=== PATIENT | female | born 1995 | race Caucasian/White ===

== ENCOUNTER 2020-08-01 22:25 | Outpatient (CLI) | payer MEDICAID, SELFPAY ==
[2020-08-01 22:25] VITALS: BMI 37.5
[2020-08-01 22:45] VITALS: BP 122/71; PULSE 96; RESP 16; TEMP 36.4
[2020-08-01 23:31] VITALS: BP 122/71; PULSE 96; RESP 16; TEMP 36.4
== END 2020-08-01 23:22 | disposition home or self-care (01) ==
LOC: OPOB 22:26 → OBGYN 22:27
PROVIDERS: PCP Family Medicine; Visit Provider Family Medicine
DX: O26.899 Other specified pregnancy related conditions, unspecified trimester (principal); Z3A.00 Weeks of gestation of pregnancy not specified; N93.9 Abnormal uterine and vaginal bleeding, unspecified
CPT/HCPCS: 99211

== ENCOUNTER 2020-08-04 07:01 | Outpatient (CLI) | payer MEDICAID, SELFPAY ==
--- NOTE | 2020-08-04 07:04 | USCV_ITS ---
Carolin Bush Age: 25 Gender: F : 1995 Exam Date: 08/04/2020 07:24 Ordering Phys: Sarath Yu MD Technologist: Kenzie Shields Exam Location: [facility] – [place] Indication: Murmur BP: 138 / 80 HR: 81 Rhythm: Sinus Technical Quality: Adequate MEASUREMENTS (Male / Female) Normal Values 2D ECHO LV Diastolic Diameter PLAX 4.5 cm 4.2 - 5.9 / 3.9 - 5.3 cm LV Systolic Diameter PLAX 3.1 cm LV Chamber Size 4.9 cm IVS Diastolic Thickness 1.1 cm 0.6 - 1.0 / 0.6 - 0.9 cm IVS Systolic Thickness 1.6 cm LVPW Diastolic Thickness 1.2 cm 0.6 - 1.0 / 0.6 - 0.9 cm LVPW Systolic Thickness 1.8 cm RV Chamber Size 3.4 cm LVOT Diameter 2.0 cm LV Ejection Fraction 2D Teich 58.3 % LV Ejection Fraction MOD 2C 66.0 % LV Ejection Fraction 2C AL 67.2 % LA Diameter 3.5 cm LA Width 3.1 cm LA Height 5.4 cm RA Width 2.7 cm RA Height 5.6 cm Aorta at Sinotubular Diameter 3.1 cm M-MODE LV Diastolic Diameter MM 4.6 cm 4.2 - 5.9 / 3.9 - 5.3 cm LV Systolic Diameter MM 3.0 cm LV Ejection Fraction MM Teich 65.0 % IVS Diastolic Thickness MM 1.0 cm 0.6 - 1.0 / 0.6 - 0.9 cm IVS Systolic Thickness MM 1.5 cm LVPW Diastolic Thickness MM 1.5 cm 0.6 - 1.0 / 0.6 - 0.9 cm LVPW Systolic Thickness MM 1.8 cm RV Diastolic Diameter MM 2.2 cm Aortic Annulus Diameter 2.5 cm LA Ao Ratio MM 1.6 MV E Point Septal Separation 0.6 cm DOPPLER AV Peak Velocity 160.0 cm/s LVOT Peak Velocity 145.0 cm/s AV Area Cont Eq vti 3.0 cm squared AV Area Cont Eq pk 2.9 cm squared MV Area PHT 4.1 cm squared Mitral E to A Ratio 1.6 MV E' Velocity 64.5 cm/s Mitral E to MV E' Ratio 7.0 Mitral E to LV E' Lateral Ratio 5.6 Mitral E to LV E' Septal Ratio 9.5 TR Peak Velocity 210.6 cm/s TR Peak Gradient 17.7 mmHg TV Peak E Velocity 76.0 cm/s Right Atrial Pressure 3.0 mmHg Pulmonary Artery Systolic Pressu 20.7 mmHg PV Peak Velocity 108.0 cm/s RV Acceleration Time 0.1 s RV Ejection Time 0.3 s RV AcT/ET 0.4 FINDINGS Left Ventricle Normal left ventricular size, systolic function and wall thickness, with no regional wall motion abnormalities. LVEF 60 to 65%. Normal left ventricular wall thickness. Normal diastolic filling pattern. Right Ventricle The right ventricle is normal in size and function. Right Atrium The right atrium is normal in size. Left Atrium The left atrium is normal in size. Mitral Valve Structurally normal mitral valve without significant stenosis or prolapse. There is trace mitral regurgitation. Aortic Valve Structurally normal aortic valve without significant sclerosis or stenosis. There is no aortic regurgitation. Tricuspid Valve Structurally normal tricuspid valve without significant stenosis. There is trace tricuspid regurgitation. RVSP is 20 to 25 mmHg. Pulmonic Valve Structurally normal pulmonic valve without significant stenosis. There is no pulmonic regurgitation. Pericardium Normal pericardium without effusion. Aorta Normal ascending aorta dimension. CONCLUSIONS LV systolic function is normal with EF of 60 to 65%. Normal diastolic function. Trace mitral regurgitation and tricuspid regurgitation is noted. No comparison studies are available. Kris Mcguire MD (Electronically Signed) Final Date: 17 August 2020 09:52 S
== END 2020-08-04 07:02 | disposition home or self-care (01) ==
LOC: US 07:03
PROVIDERS: PCP Family Medicine; Visit Provider Family Medicine
DX: I08.1 Rheumatic disorders of both mitral and tricuspid valves (principal); R01.1 Cardiac murmur, unspecified
CPT/HCPCS: 93306

== ENCOUNTER 2020-09-02 12:10 | Outpatient (CLI) | payer MEDICAID, SELFPAY ==
[2020-09-02] VITALS (68 sets, daily range): BP systolic 138–228; BP diastolic 56–106; PULSE 8–141; RESP 16; TEMP 36.6; O2SAT 55–100; BMI 37.5
[2020-09-02 13:21] LABS: Add Urine Microscopic? NO
[2020-09-02 13:51] LABS: Basophils % 0.1 %; Eosinophils # 0.1 10^3/uL (0.0-0.8); Eosinophils % 1.2 %; Hematocrit 30.7 % (37.0-47.0); Hemoglobin 9.4 g/dL (11.5-15.3); Lymphocytes # 1.6 10^3/uL (0.8-4.8); Lymphocytes % 20.9 %; Mean Corpuscular HGB Conc 30.6 g/dL (30.0-36.0); Mean Corpuscular Hemoglobin 25.3 pg (28.0-34.0); Mean Corpuscular Volume 82.5 fL (81-99); Mean Platelet Volume 9.6 fL (7.4-10.4); Monocytes # 0.6 10^3/uL (0.2-0.9); Monocytes % 7.7 %; Neutrophils # 5.32 10^3/uL (1.8-7.7); Neutrophils % 69.4 %; Nucleated Red Blood Cells % 0 %; Platelet Count 186 10^3/cmm (130-400); Red Blood Count 3.72 10^6/uL (4.1-5.3); Red Cell Distribution Width 14.9 % (12.1-15.1); White Blood Count 7.7 10^3/uL (4.0-10.0)
[2020-09-02] MEDS: labetalol 5 mg/mL SDV 20mL IVP (13:56)
[2020-09-02] MEDS: betamethasone susp 6 mg/mL 5 mL 12 MG IM (13:56)
[2020-09-02 14:12] LABS: Bilirubin Urine Neg (Negative); Blood Urine Neg (Negative); Glucose Urine UA Norm (Normal); Ketones Urine Negative (Negative); Leukocyte Esterase Urine Negative (Negative); Nitrate Urine Negative (Negative); Protein Urine Neg (Negative); Specific Gravity, Urine 1.005 (1.005-1.030); Urine Appearance Clear (CLEAR); Urine Color Straw (Yellow); Urobilinogen Urine Norm (Negative)
[2020-09-02 14:41] LABS: Alanine Aminotransferase 8 U/L (0-33); Albumin Level 3.8 g/dL (3.5-5.2); Alkaline Phosphatase 123 IU/L (35-105); Anion Gap 12.7 (5-19); Aspartate Amino Transferase 12 U/L (0-32); Blood Urea Nitrogen 6 mg/dL (6-20); Calcium 9.7 mg/dL (8.5-10.5); Carbon Dioxide 22 mmol/L (22-29); Chloride 102 mmol/L (98-107); Glomerular Filtration Rate 196.1 mL/min (90-130); Glucose 98 mg/dL (65-115); Osmolality Calculated 274 mOsm/kg (285-295); Potassium 3.7 mmol/L (3.5-5.1); Sodium 133 mmol/L (136-145); Total Bilirubin 0.2 mg/dL (0.15-1.2); Total Protein 6.8 g/dL (6.6-8.7); Uric Acid 3.6 mg/dL (2.4-5.7)
[2020-09-02 16:10] LABS: Thyroid Stimulating Hormone 0.75 uIU/mL (0.27-4.20)
[2020-09-02 17:03] LABS: Urine Creatinine 28 mg/dL (28-217); Urine Protein Random 4 mg/dL
[2020-09-02 17:05] LABS: UPRO/UCREAT Ratio 0.14 mg/mg CR
== END 2020-09-02 17:00 | disposition home or self-care (01) ==
LOC: OPOB 12:14 → OBGYN 12:15
PROVIDERS: PCP Family Medicine; Visit Provider Family Medicine
DX: O13.9 Gestational [pregnancy-induced] hypertension without significant proteinuria, unspecified trimester (principal); Z3A.00 Weeks of gestation of pregnancy not specified
CPT/HCPCS: 59025; 80053; 81003; 82570; 84156; 84443; 84550; 85025; 96372; 96375; 99211; J0702; J3490

== ENCOUNTER 2020-09-03 13:49 | Outpatient (CLI) | payer MEDICAID, SELFPAY ==
[2020-09-03 13:56] VITALS: BMI 37.5
[2020-09-03] MEDS: betamethasone susp 6 mg/mL 5 mL 12 MG IM (14:04)
== END 2020-09-03 14:08 | disposition home or self-care (01) ==
LOC: OPOB 13:52
PROVIDERS: PCP Family Medicine; Visit Provider Family Medicine
DX: O13.9 Gestational [pregnancy-induced] hypertension without significant proteinuria, unspecified trimester (principal); Z3A.00 Weeks of gestation of pregnancy not specified
CPT/HCPCS: 96372; J0702

== ENCOUNTER 2020-09-07 10:30 | Outpatient (CLI) | payer MEDICAID, SELFPAY ==
[2020-09-07 10:38] VITALS: RESP 18; TEMP 36.7
[2020-09-07 10:45] VITALS: BMI 37.3
[2020-09-07 10:58] VITALS: BP 161/90; PULSE 118
[2020-09-07 11:19] VITALS: BP 161/90; PULSE 118; RESP 18; TEMP 36.7
[2020-09-08 17:19] LABS: Coronavirus Lab Test PTC Negative
== END 2020-09-07 11:15 | disposition home or self-care (01) ==
LOC: OPOB 10:36
PROVIDERS: PCP Family Medicine; Visit Provider Family Medicine
DX: O16.9 Unspecified maternal hypertension, unspecified trimester (principal)
CPT/HCPCS: 59025; 87635; 99211

== ENCOUNTER 2020-09-10 09:58 | Outpatient (CLI) | payer MEDICAID, SELFPAY ==
[2020-09-10] VITALS (23 sets, daily range): BP systolic 0–196; BP diastolic 0–92; PULSE 77–153; RESP 16; TEMP 37.1; BMI 39.1
--- NOTE | 2020-09-10 10:36 | PC.NURSE ---
power outage occured at 1017, and back up power did not reboot monitor in room 209 where pt was for NST. pt walked to room LDR1 and used bathroom and then hooked back to monitors
[2020-09-10] MEDS: labetalol 5 mg/mL SDV 20mL 20 MG IVP (13:17)
[2020-09-10 13:49] LABS: Add Urine Microscopic? NO
[2020-09-10 14:01] LABS: Basophils % 0.2 %; Eosinophils # 0.1 10^3/uL (0.0-0.8); Hematocrit 30.7 % (37.0-47.0); Hemoglobin 9.4 g/dL (11.5-15.3); Lymphocytes % 22.7 %; Mean Corpuscular HGB Conc 30.6 g/dL (30.0-36.0); Mean Corpuscular Volume 81.6 fL (81-99); Mean Platelet Volume 9.8 fL (7.4-10.4); Monocytes # 0.8 10^3/uL (0.2-0.9); Monocytes % 9.3 %; Neutrophils # 5.92 10^3/uL (1.8-7.7); Neutrophils % 65.8 %; Nucleated Red Blood Cells % 0 %; Platelet Count 213 10^3/cmm (130-400); Red Blood Count 3.76 10^6/uL (4.1-5.3); Red Cell Distribution Width 15.1 % (12.1-15.1)
[2020-09-10 14:05] LABS: Bilirubin Urine Neg (Negative); Blood Urine Neg (Negative); Glucose Urine UA Norm (Normal); Ketones Urine Negative (Negative); Leukocyte Esterase Urine Negative (Negative); Nitrate Urine Negative (Negative); Protein Urine Neg (Negative); Sulfosalicylic Acid Urine Negative (Negative); Urine Appearance Clear (CLEAR); Urine Color Yellow (Yellow); Urobilinogen Urine Norm (Negative); pH Urine 8 (5-7)
[2020-09-10 14:15] LABS: UPRO/UCREAT Ratio 0.16 mg/mg CR; Urine Creatinine 31 mg/dL (28-217); Urine Protein Random 5 mg/dL
--- NOTE | 2020-09-10 14:17 | P.TNLD_ITS ---
OB L&D Triage Visit Information: Date of evaluation: 09/10/20 Comments/Additional reason(s) for visit: The patient is a 25-year-old female at 36 weeks and 5 days who presented to the OB department today for a scheduled NST due to gestational hypertension. She had a recent 24-hour protein screen which found her protein to be 180. She had a panel done last week which was negative. She has intermittent systolic blood pressures that are 180s but then will also drop into a normal range intermittently. She is currently on labetalol 200 mg twice daily. Evaluation: Laboratory results: Laboratory Tests 09/10/20 09/10/20 09/10/20 13:15 13:15 13:20 WBC 9.0 RBC 3.76 L Hgb 9.4 L Hct 30.7 L MCV 81.6 MCH 25.0 L MCHC 30.6 RDW 15.1 Plt Count 213 MPV 9.8 Neut % (Auto) 65.8 Lymph % (Auto) 22.7 [place] % (Auto) 9.3 Eos % (Auto) 1.0 Baso % (Auto) 0.2 Neut # (Auto) 5.92 Lymph # (Auto) 2.0 [place] # (Auto) 0.8 Eos # (Auto) 0.1 Baso # (Auto) 0.0 Nucleated RBC % (a uto) 0 Nucleated RBCs # 0.0 Urine Color Yellow Urine Appearance Clear Urine pH 8 H Ur Specific Gravit y 1.010 Urine Protein Neg Urine Glucose (UA) Norm Urine Ketones Negative Urine Blood Neg Urine Nitrate Negative Urine Bilirubin Neg Prot Sulfosalicyli c Acd Negative Urine Urobilinogen Norm Ur Leukocyte Ave ase Negative U Random Total Pro tein 5 Urine Creatinine 31 Protein/Creatinin Ratio 0.16 Vital signs: Vital Signs - 24 hr 09/10/20 10:08 09/10/20 10:48 09/10/20 10:56 Pulse Rate 153 H 104 H 124 H Blood Pressure 138/77 184/87 196/84 09/10/20 11:12 09/10/20 11:27 09/10/20 12:03 Pulse Rate 114 H 126 H 104 H Blood Pressure 183/83 188/81 175/84 09/10/20 12:33 09/10/20 13:14 09/10/20 13:28 Pulse Rate 116 H 92 Blood Pressure 183/84 181/92 0/0 09/10/20 13:30 09/10/20 13:39 09/10/20 13:49 Pulse Rate 101 H 97 92 Blood Pressure 174/84 155/67 145/72 09/10/20 13:58 09/10/20 14:00 09/10/20 14:09 Pulse Rate 85 Blood Pressure 0/0 136/73 0/0 09/10/20 14:10 Pulse Rate 87 Blood Pressure 141/80 Final Diagnosis Final Diagnosis (1) Gestational hypertension: Status: Acute Code(s): O13.9 - Gestational [-induced] hypertension without significant proteinuria, unspecified trimester Coding Level of Care Code Acute Real Estate Consultant for Chg Fwd Diagnoses Gestational hypertension O13.9
[2020-09-10 14:38] LABS: Alanine Aminotransferase 19 U/L (0-33); Albumin Level 3.9 g/dL (3.5-5.2); Alkaline Phosphatase 128 IU/L (35-105); Aspartate Amino Transferase 23 U/L (0-32); Blood Urea Nitrogen 6 mg/dL (6-20); Carbon Dioxide 21 mmol/L (22-29); Chloride 101 mmol/L (98-107); Globulin 2.9 g/dL (1.3-4.6); Glomerular Filtration Rate 273.3 mL/min (90-130); Glucose 74 mg/dL (65-115); Osmolality Calculated 272 mOsm/kg (285-295); Sodium 133 mmol/L (136-145); Total Bilirubin 0.2 mg/dL (0.15-1.2); Total Protein 6.8 g/dL (6.6-8.7); Uric Acid 3.7 mg/dL (2.4-5.7)
== END 2020-09-10 15:20 | disposition home or self-care (01) ==
LOC: OPOB 10:04 → OBGYN 10:04
PROVIDERS: PCP Family Medicine; Visit Provider Family Medicine
DX: O13.9 Gestational [pregnancy-induced] hypertension without significant proteinuria, unspecified trimester (principal)
CPT/HCPCS: 12345; 36415; 59025; 80053; 81003; 82570; 84156; 84550; 85025; 96375; 99211; J3490

== ENCOUNTER 2020-09-14 06:18 | Inpatient (IN) | payer MEDICAID, SELFPAY ==
[2020-09-13] VITALS (23 sets, daily range): BP systolic 0–174; BP diastolic 0–88; PULSE 79–118; TEMP 37.2; BMI 38.6
[2020-09-13] MEDS: miSOPROStol 100 mcg tablet 25 MCG VAGINAL (20:53)
[2020-09-13] MEDS: labetalol 5 mg/mL SDV 20mL 20 MG IVP (21:49)
[2020-09-13 21:55] LABS: Basophils % 0.4 %; Eosinophils # 0.1 10^3/uL (0.0-0.8); Eosinophils % 1.2 %; Hematocrit 27.8 % (37.0-47.0); Hemoglobin 8.5 g/dL (11.5-15.3); Lymphocytes # 2.1 10^3/uL (0.8-4.8); Lymphocytes % 26.3 %; Mean Corpuscular HGB Conc 30.6 g/dL (30.0-36.0); Mean Corpuscular Volume 81.8 fL (81-99); Mean Platelet Volume 10.3 fL (7.4-10.4); Monocytes # 0.7 10^3/uL (0.2-0.9); Monocytes % 8.6 %; Neutrophils # 5.08 10^3/uL (1.8-7.7); Nucleated Red Blood Cells % 0 %; Platelet Count 214 10^3/cmm (130-400); White Blood Count 8.1 10^3/uL (4.0-10.0)
[2020-09-13] MEDS: labetalol 5 mg/mL SDV 20mL 40 MG IVP (22:35)
[2020-09-13 22:48] LABS: Urine Creatinine 127 mg/dL (28-217); Urine Protein Random 9 mg/dL
[2020-09-13 22:50] LABS: UPRO/UCREAT Ratio 0.07 mg/mg CR
[2020-09-14] VITALS (104 sets, daily range): BP systolic 0–181; BP diastolic 0–105; PULSE 61–118; RESP 16–18; TEMP 36.7–37.2; O2SAT 93–99
[2020-09-14] MEDS: morphine 4 mg/mL SDV 1 mL 8 MG IM (00:11)
[2020-09-14] MEDS: promethazine 25 mg/mL SDV 1 mL IM (00:11)
[2020-09-14] MEDS: miSOPROStol 100 mcg tablet 25 MCG VAGINAL ×4 (00:36→13:08)
[2020-09-14] MEDS: labetalol 200 mg Tablet 400 MG PO (08:20)
[2020-09-14] MEDS: lactated ringers 1,000 ML 999 ML IV ×2 (15:00→18:35)
--- NOTE | 2020-09-14 16:10 | ANES.PREANE2 ---
Pre-Anesthetic Assessment Pre-Anesthetic Assessment: Height/Weight: Height 1.63 m Weight 102.058 kg Temp Pulse Resp BP Pulse Ox 98.1 F 77 16 150/79 95 09/14/20 02:00 09/14/20 16:07 09/14/20 02:00 09/14/20 16:07 09/14/20 15:58 Preop Diagnosis: IUP Proposed Procedure: epidural Familial anesthetic complications: None Was Beta Jean Carlos taken within 24 hours: N/A Social: Social History: No alcohol and No tobacco Exam: Pre-Anes Outpt Exam: alert, oriented x 3, clear to auscultation bilaterally and regular rate & rhythm Airway: Cervical ROM: WNL MP: 3 Dentition: Full CV/HEM: CV/HEM: HTN Anesthetic Plan: ASA status: 3 Anesthesia: Regional (specify below) Risk of > 500 ml blood loss (7ml/kg in children): No Meds/Allergies Current Medications: Current Medications Generic Name Dose Route Start Last Admin Trade Name Freq PRN Reason Stop Dose Admin Dextrose/Lactated Ringer's 1,000 mls @ 125 m ls/hr 09/13/20 20:00 09/14/20 07:36 Dextrose 5%-Lact ated Ringers IV Not Given .Q8H PAUL Ropivacaine 200 mg in 100 mls @ 13 mls/hr 09/14/20 15:30 09/14/20 16:02 Naropin Premix EPIDURAL 13 mls/hr .Q7H42M PAUL Administration Lactated Ringer's 1,000 mls @ 999 m ls/hr 09/14/20 15:19 09/14/20 15:00 Lactated Ringers IV 999 mls/hr .Q1H1M PRN Administration See label comment s Labetalol HCl 20 mg 09/13/20 19:50 09/13/20 21:49 Labetalol 5 Mg/M l Sdv 20ml IVP 20 mg PRN PRN Administration HYPERTENSION Protocol Labetalol HCl 40 mg 09/13/20 19:50 09/13/20 22:35 Labetalol 5 Mg/M l Sdv 20ml IVP 40 mg PRN PRN Administration HYPERTENSION Protocol Labetalol HCl 400 mg 09/14/20 09:00 09/14/20 08:20 Labetalol 200 Mg Tablet PO 400 mg BID PAUL Administration PFSH Anesthesia Female Reproductive History: : 4 Data Anesthesia CBC & Chem 7: 09/13/20 20:00 Other Labs: Laboratory Results - last 48 hr 09/13/20 09/13/20 20:00 20:00 WBC 8.1 RBC 3.40 L Hgb 8.5 L Hct 27.8 L MCV 81.8 MCH 25.0 L MCHC 30.6 RDW 15.0 Plt Count 214 MPV 10.3 Neut % (Auto) 63.0 Lymph % (Auto) 26.3 [place] % (Auto) 8.6 Eos % (Auto) 1.2 Baso % (Auto) 0.4 Neut # (Auto) 5.08 Lymph # (Auto) 2.1 [place] # (Auto) 0.7 Eos # (Auto) 0.1 Baso # (Auto) 0.0 Nucleated RBC % (auto) 0 Nucleated RBCs # 0.0 U Random Total Protein 9 Urine Creatinine 127 Protein/Creatinin Ratio 0.07 Cardiac Studies: Holter Monitor 09/04/20
--- NOTE | 2020-09-14 16:11 | ANES.PROC ---
Anesthesia Procedures Procedure/Date: 09/14/20 Epidural: Time Out Performed: Yes Consents Signed: Procedure Consent Consent: requested by attending/covering physician, from patient, risks and benefits reviewed and patient agrees to proceed Lumbar Level: L3-L4 Epidural position: sitting Epidural procedure: sterile prep of area, 1% lidocaine to numb the area, 18 g needle, negative for paresthesia passed, neg for paresthesia, test dose given, 1.5% xylocaine 1:200k epi (5 cc (divided dose)), 0.2% Ropivacaine bolus ml (5 cc), placed PCEA, no systemic response, sterile dressing applied, L.U.D. no apparent complications and 0.2% Ropiavacaine @ mls/hr (13) Additional Comments: JORGE at 5.5 cm, threaded to 11 cm. Patient reported significant decrease in pain. Slight unilateral block, with patient reporting R foot being warm and some residual ability to feel contraction on Left. Encouraged recumbent positioning and use of bolus for volume effect.
[2020-09-14] MEDS: dextrose 5%-lactated ringers 1,000 ML 125 ML IV (16:15)
--- NOTE | 2020-09-14 20:36 | PM.DELIVERY ---
Delivery Note: Date of delivery: September 14, 2020 Pre-delivery diagnoses: 1. 25-year-old 3 para 2-0-0-2 at 37 weeks estimated gestational age 2. Gestational hypertension Post-delivery diagnoses: Same Procedure: Spontaneous vaginal delivery Delivering Physician: Sarath Yu Estimated blood loss (mL): 150 Pre-Delivery Course: For induction due to intermittent elevated blood pressures despite being on labetalol. At times her systolic blood pressure was greater than 180. She had no other signs or symptoms of preeclampsia. Regardless, due to the severity of the blood pressures I elected to proceed with an induction at 37 weeks. The patient cervix was closed thick and relatively hard. She is placed on Cytotec 25 mcg x 5 per vagina. An amniotomy was performed. She then progressed to complete without difficulty. Delivery: DELIVERY: The patient progressed to complete without difficulty. She delivered a female with a weight of 6 pounds 3 ounces with Apgars of 8, 9. The baby was delivered from the JUJU position. The baby was then completely delivered and placed on the mother's abdomen. The cord was then clamped and cut. There was a nuchal cord x1. There was no meconium. The placenta and 3 vessel cord were delivered intact shortly thereafter. The perineum and vaginal vault were carefully examined. No lacerations were noted. Both the mother and the baby were in stable condition. Post-Delivery Status: Good Coding Level of Care Code Acute Hardboard Coating Machine Operator for Geremias Maguire
[2020-09-14] MEDS: ibuprofen 800 mg tablet PO (22:57)
[2020-09-14] MEDS: lanolin oint 7 gm 1 APPLIC TOPICAL (22:58)
[2020-09-14] MEDS: benzocaine-menthol 78 gm Canister 1 SPRAY TOPICAL (22:58)
[2020-09-14] MEDS: labetalol 200 mg Tablet PO (23:30)
[2020-09-15] VITALS (7 sets, daily range): BP systolic 109–155; BP diastolic 61–90; PULSE 69–86; RESP 16–17; TEMP 36.5–36.9; O2SAT 98
[2020-09-15] MEDS: benzocaine-menthol 78 gm Canister 1 SPRAY TOPICAL (04:06)
[2020-09-15 06:05] LABS: Hematocrit 25.7 % (37.0-47.0); Hemoglobin 8.1 g/dL (11.5-15.3); Mean Corpuscular HGB Conc 31.5 g/dL (30.0-36.0); Mean Corpuscular Hemoglobin 25.8 pg (28.0-34.0); Mean Corpuscular Volume 81.8 fL (81-99); Mean Platelet Volume 10.3 fL (7.4-10.4); Platelet Count 169 10^3/cmm (130-400); Red Blood Count 3.14 10^6/uL (4.1-5.3); Red Cell Distribution Width 15.3 % (12.1-15.1); White Blood Count 10.3 10^3/uL (4.0-10.0)
[2020-09-15] MEDS: docusate sodium 100 mg Capsule PO ×2 (09:34→17:21)
[2020-09-15] MEDS: ibuprofen 800 mg tablet PO ×2 (09:34→14:49)
[2020-09-15] MEDS: labetalol 200 mg Tablet PO ×2 (09:35→17:21)
[2020-09-15] MEDS: prenatal vitamin Capsule 1 CAP PO (09:35)
--- NOTE | 2020-09-15 12:42 | ANE.PACU2 ---
Inpatient post-anesthesia follow up: Airway intact: Yes Vital signs: Temperature 98.0 F Pulse Rate 74 Respiratory Rate 17 Blood Pressure 127/72 Pulse Oximetry 95 Oxygen Delivery Me thod Room Air Oxygen Flow Rate Fraction of Inspir ed Oxygen Hydration adequate: Yes Nausea and vomiting: No Pain level: 2 Mental status: Baseline Additional Comments: No signs of infection at neuraxial site, moderate bruising, up and walkign with no residual lower extremity numbness or weakness, urinating without brown, no headaches
--- NOTE | 2020-09-15 13:26 | PM.OBGYDC ---
Discharge Providers SIDE BOSS Date of Admission: 09/14/20 06:18 Date of Discharge: 09/15/20 Attending Provider at Admission: Sarath Yu MD Attending Provider at Discharge: Sarath Yu MD Primary Care Provider: Sarath Yu MD Diagnoses at Discharge Discharge Diagnosis (1) Spontaneous vaginal delivery: Status: Acute Reason for Visit Reason for Visit: Scheduled Induction Hospital Course Hospital Course The patient is a 25-year-old 3 patient who is admitted to the hospital due to gestational hypertension. She was induced with Cytotec and later with an amniotomy. She progressed to complete and had an unremarkable delivery of a healthy-appearing 37-week female . Her course was unremarkable. Her blood pressure improved. She is maintained on labetalol. Her pain was well controlled. Bleeding was within normal limits. Information Peripartum Data: Infant Delivery Method: Vaginal Physical Exam Narrative: EXAM NARRATIVE: The patient is alert. She appears comfortable. Her heart has a regular rate and rhythm with no murmurs appreciated. Lungs are clear to auscultation bilaterally. Her fundus is firm and below the umbilicus. Urinary Catheter Management^: Ayala: Cath Placed During This Visit: yes Urinary Catheter Date of Insertion: 09/14/20 Urinary Catheter Time of Insertion: 16:44 Discharge Data Data Completed and Pending: Labs from last 24 hours 09/15/20 05:30 WBC 10.3 H RBC 3.14 L Hgb 8.1 L Hct 25.7 L MCV 81.8 MCH 25.8 L MCHC 31.5 RDW 15.3 H Plt Count 169 MPV 10.3 Vitals: Last Vital Signs Temp 98.0 F 09/15/20 06:04 Pulse 74 09/15/20 06:04 Resp 17 09/15/20 06:04 BP 127/72 09/15/20 06:04 Pulse Ox 95 09/14/20 15:58 Discharge Plan Discharge Patient Disposition: Home Condition: Stable Prescriptions: New ibuprofen 800 mg Tablet 800 mg PO TID Qty: 30 RF: 0 Continued ferrous sulfate [iron] 325 mg (65 mg iron) Tablet 325 mg PO DAILY RF: 0 prenat 115-iron [id number] 29 mg iron- 1 mg-25 mg Tablet 1 tab PO DAILY RF: 0 Changed labetalol 100 mg Tablet 200 mg PO BID Qty: 0 RF: 0 Discharge Orders: Discharge Order (Routine); Ordered 09/15/20 Ordered By: Sarath Yu Referrals: Sarath Yu MD [Primary Care Provider] - 1 week (Please make sure her appointment corresponds with her baby's appointment. Also set up an appointment for 6 weeks.) Discharge Diet: Regular Discharge Activity: Limit activity as instructed Activity Restrictions/Additional Instructions: Please check blood pressure every 1 to 2 days for 1 week Discharge Attestations SIDE BOSS Time Spent in Discharge Care*: less than 30 min Coding Level of Care Code Acute Semiconductor Wafers Etcher Stripper for Chg Fwd Diagnoses Spontaneous vaginal delivery O80
== END 2020-09-15 21:12 | disposition home or self-care (01) | DRG 807 ==
LOC: OPOB 07:47 → OBGYN 07:47
PROVIDERS: Admitting Provider Family Medicine; PCP Family Medicine; Visit Provider Family Medicine
DX: O13.4 Gestational [pregnancy-induced] hypertension without significant proteinuria, complicating childbirth (principal); Z37.0 Single live birth; O69.2XX0 Labor and delivery complicated by other cord entanglement, with compression, not applicable or unspecified; Z3A.37 37 weeks gestation of pregnancy
CPT/HCPCS: 12345; 36415; 51702; 59409; 82570; 84156; 85025; 85027; 96372; 96375; J2270; J2550; J2795; J3490

== ENCOUNTER 2022-03-27 15:15 | Emergency (ER) | payer MEDICAID, SELFPAY ==
[2022-03-27 15:32] VITALS: BP 187/106; PULSE 99; RESP 16; TEMP 36.8; O2SAT 99; BMI 30.7
--- NOTE | 2022-03-27 15:39 | ED_ITS ---
HPI - General Adult General: Chief complaint: General Medical Stated complaint: high BP Time Seen by Provider: 03/27/22 15:38 History of Present Illness: CC: Elevated BP HPI: [27]yo patient w/ x hx of elevated previous blood pressure readings presenting to the ED with complaints of lightheadedness, nausea vomiting mild headache and uncontrolled blood pressure. Patient tells me for the last 3 days she has been feeling well. She has been feeling sluggish. On top of that earlier today, patient has had a mild headache for the last 2 days with 1 episode of emesis upon waking up today. Patient says that she does not have energy to perform her function. Earlier today at home, patient noted that her blood pressure was high. Past, patient has had elevated blood pressure reading once during and multiple times recently in the last 2 weeks. However patient does not take any medicine for blood pressure.Denies chest pain, SOB, palpitation, pain radiating to the shoulder, headache, vision changes, LOC, or focal neurological deficits. Patient also denies light-headedness, syncope, vertigo abdominal pain, back pain. Tolerating PO meds without issues. In terms of her headache, this is not worst headache of life and sudden in onset. Did not reach maximal intensity over first 1-2 hours. Onset: 2 day Duration: ongoing Location: home Severity: mild Associated symptoms: Reports headache(s), malaise, nausea and vomiting (1 epis ode of emesis today); Deny chest pain, dyspnea, rash or palpitations Review of Systems Const: Reports: fatigue, malaise and other (+light-headedness); Denies: fever(s) or chills Eyes: Denies: change in vision ENMT: Denies: mouth pain Card: Denies: chest pain or palpitations Resp: Denies: dyspnea or non-productive cough GI: Reports: nausea and vomiting (1 episode of emesis today); Denies: abdominal pain or diarrhea : Denies: dysuria Musc: Denies: extremity pain Skin/Breast: Denies: rash or new lesions Neuro: Reports: headache(s); Denies: weakness in extremities Psych: Reports: other (Normal mood) Mikel/Lymph: Denies: easy bruising PFS ED PFSH: Medical History Elevated blood pressure reading Social History Smoking and tobacco status: never smoked Alcohol intake: current Substance/Drug Use: never Physical Exam Const: COMMON NORMALS: alert HENMT: COMMON NORMALS: atraumatic HEAD & SCALP: atraumatic MOUTH: moist mucous membranes not abnormal Eye: COMMON NORMALS: EOMs intact bilaterally and conjunctivae normal CONJUNCTIVA: Yes conjunctivae normal Neck/C-Spine: COMMON NORMALS: full ROM and supple Resp: COMMON NORMALS: normal respiratory effort and clear to auscultation bilaterally AUSCULTATION: clear to auscultation bilaterally Cardio: COMMON NORMALS: regular rate RATE: regular rate GI: COMMON NORMALS: Soft to palpation and non-tender PALPATION: Yes Soft to palpation Extremity: COMMON NORMALS: full ROM Neuro: SENSORIUM/ORIENTATION: Yes alert MOTOR EXAM: No Abnormal motor strength present and Other motor observations present (no focal motor deficits) OTHER: Mental status? Awake, alert, and oriented to self, year, month, location, and situation.? Following simple axial and appendicular commands.? Has appropriate fund of knowledge, comprehension, and insight.? Able to recall and understands pertinent aspects of medical history and current treatment status.? ? Language? Speech is fluent without word-finding difficulties.? Intact naming, expression, pump press operator, and repetition.? ? Cranial nerves? 2,3,4,6: PERRL, EOMI with no nystagmus. 5: Intact sensation to light touch, symmetric? 7: Smile symmetrical, no facial droop.? 8: Hearing grossly intact.? 9,10: Normal palate movement.? 11: Normal strength in trapezius bilaterally 12: Tongue protrudes midline.? ? Motor examination? Normal bulk & tone. Strength as follows (R/L): Delts (5/5), Biceps (5/5), Triceps (5/5), Wrist ext (5/5), hip flexors (5/5), plantarflexors (5/5), dorsiflexors (5/5). ? Sensation? Light Touch: Grossly intact and equal in upper and lower extremities bilaterally? Romberg: Negative.? Distal joint position sense intact ? Coordination? Vvmojh-ob-nzov-finger movements intact without dysmetria or past-pointing.? Rapid fingertaps: preserved amplitude without decriment.? No tremor, myoclonus or truncal ataxia.? ? Gait/stance? Steady, normal narrow base gait with appropriate arm swing and turning.? Tandem gait without hesitation or loss of balance. Psych: COMMON NORMALS: speech normal SPEECH: Yes normal speech MOOD & AFFECT: Yes euthymic mood Course Vital Signs: Vital signs: Vital Signs Temperature 98.2 F 03/27/22 15:32 Pulse Rate 101 H 03/27/22 16:04 Respiratory Rate 18 03/27/22 16:04 Blood Pressure 161/109 03/27/22 16:04 Pulse Oximetry 96 03/27/22 16:04 MDM - General Adult Medical Decision Making [27]yo patient w/ hx of prior elevated BP reading medications presenting to the ED with high BP readings x 1 day without other medical complaints. BP in the ED of 180/110. Rest of exam including full neuro exam intact. Given presentation, history and exam, I do not suspect aortic dissection, hypertensive encephalopathy, intracranial hemorrhage, ACS, TIA/CVA, flash pulmonary edema. Workup: CBC, BMP, tropon, EKG Intervention: Nifedipine 30mg x 1 PRN elevated BP [5:00pm] On reassessment, BP improved. Patient continues to be symptom-free at this time. Do not suspect an emergent cause. Discussed with the patient the importance of logging BPs and following up with his PCP for adjustment of BP if BP continues to be persistently high. Rx amlodpine 5mg daily x 14 days Based on history, exam, vital signs, and work up (as indicated) I do not suspect an ongoing emergent medical condition, and I believe the patient is safe for discharge and outpatient follow-up. The plan of care was discussed with the patient and all questions were answered. The patient agrees with the plan of care and is discharged in stable condition with verbal and written instructions, and verbalized understanding and ability to comply. I discussed the diagnosis and treatment plan at length with the patient. The patient understands signs and symptoms (including those which are new or worsening) which should prompt return to the ED. The patient is to seek prompt outpatient follow-up as noted verbally and/or in the discharge instructions. At the time of discharge the patient is well-appearing, well-hydrated, non-toxic, and assures appropriate follow-up as an outpatient. Lab Data : 03/27/22 15:50 03/27/22 15:50 Laboratory Results WBC 8.1 10^3/uL (4.0-10.0) 03/27/22 15:50 RBC 4.51 10^6/uL (4.1-5.3) 03/27/22 15:50 Hgb 11.6 g/dL (11.5-15.3) 03/27/22 15:50 Hct 36.3 % (37.0-47.0) L 03/27/22 15:50 MCV 80.5 fl (81-99) L 03/27/22 15:50 MCH 25.7 pg (28.0-34.0) L 03/27/22 15:50 MCHC 32.0 g/dL (30.0-36.0) 03/27/22 15:50 RDW 15.1 % (12.1-15.1) 03/27/22 15:50 Plt Count 250 10^3/cmm (130-400) 03/27/22 15:50 MPV 9.1 fL (7.4-10.4) 03/27/22 15:50 Neut % (Auto) 71.4 % 03/27/22 15:50 Lymph % (Auto) 21.0 % 03/27/22 15:50 [place] % (Auto) 6.6 % 03/27/22 15:50 Eos % (Auto) 0.4 % 03/27/22 15:50 Baso % (Auto) 0.4 % 03/27/22 15:50 Neut # (Auto) 5.75 10^3/uL (1.8-7.7) 03/27/22 15:50 Lymph # (Auto) 1.7 10^3/uL (0.8-4.8) 03/27/22 15:50 [place] # (Auto) 0.5 10^3/uL (0.2-0.9) 03/27/22 15:50 Eos # (Auto) 0.0 10^3/uL (0.0-0.8) 03/27/22 15:50 Baso # (Auto) 0.0 10^3/uL (0.0-0.1) 03/27/22 15:50 Nucleated RBC % (auto) 0 % 03/27/22 15:50 Nucleated RBCs # 0.0 /100WBC 03/27/22 15:50 Sodium 135 mmol/L (136-145) L 03/27/22 15:50 Potassium 3.7 mmol/L (3.5-5.1) 03/27/22 15:50 Chloride 101 mmol/L (98-107) 03/27/22 15:50 Carbon Dioxide 21 mmol/L (22-29) L 03/27/22 15:50 Anion Gap 16.7 (5-19) 03/27/22 15:50 BUN 11 mg/dL (6-20) 03/27/22 15:50 Creatinine 0.6 mg/dL (0.5-0.9) 03/27/22 15:50 GFR Calculation 120.8 mL/min (90-130) 03/27/22 15:50 Glucose 102 mg/dL (65-115) 03/27/22 15:50 Calculated Osmolality 280 mOsm/kg (285-295) L 03/27/22 15:50 Calcium 9.6 mg/dL (8.5-10.5) 03/27/22 15:50 Troponin T Gen 5 ng/L 6 ng/L (0-10) 03/27/22 15:50 Discharge Plan Discharge Patient Disposition: Home Clinical Impression: Hypertension Condition: Stable Prescriptions: New amlodipine 5 mg tablet 5 mg PO DAILY 14 Days Qty: 14 0RF No Action ferrous sulfate [iron] 325 mg (65 mg iron) Tablet 325 mg PO DAILY 0RF prenat 115-iron [id number] 29 mg iron- 1 mg-25 mg Tablet 1 tab PO DAILY 0RF ibuprofen 800 mg Tablet 800 mg PO TID Qty: 30 0RF labetalol 100 mg Tablet 200 mg PO BID Qty: 0 0RF Discharge Orders: Discharge ED (Routine); Ordered 03/27/22 Ordered By: Anthony Serna Referrals: Sarath Yu MD [Primary Care Provider] - Discharge Diet: Advance as tolerated Discharge Activity: Increase activity as tolerated Activity Restrictions/Additional Instructions: You need to follow-up with your primary care provider for further adjustment of your blood pressure. Your blood pressure puts you at risk for developing strokes and heart attack. Therefore it is very important for you to follow-up with this number to see if the numbers improve gradually. Because blood pressure adjustment is a gradual process, were not able to change it in 1 visit. Therefore please log your blood pressure and follow-up with your primary care provider in the next 72 hours for further adjustment of your blood pressures. Stand Alone Forms: Work/School Release Coding Level of Care Code ED Glass Lathe Operator for Geremias Fwd Exam Comprehensive
--- NOTE | 2022-03-27 15:47 | ECG_ITS ---
[facility] Test Date: 2022-03-27 Pat Name: Carolin Bush Department: Room: Gender: Female Special Diet Cook: : 1995 Requested By: Anthony Serna Order Number: [id number] Kayla MD: Nikolay Freeman M.D. Measurements Intervals [place] Rate: 76 P: 43 TN: 125 QRS: 55 QRSD: 93 T: 37 QT: 343 QTc: 387 Interpretive Statements SINUS RHYTHM WITH SINUS ARRHYTHMIA NONSPECIFIC T-WAVE ABNORMALITY No previous ECG available for comparison Electronically Signed On 03-28-2022 16:20:05 CDT by Nikolay Freeman M.D. [id number]
[2022-03-27 16:01] LABS: Basophils % 0.4 %; Eosinophils % 0.4 %; Hematocrit 36.3 % (37.0-47.0); Hemoglobin 11.6 g/dL (11.5-15.3); Lymphocytes # 1.7 10^3/uL (0.8-4.8); Mean Corpuscular Hemoglobin 25.7 pg (28.0-34.0); Mean Corpuscular Volume 80.5 fl (81-99); Mean Platelet Volume 9.1 fL (7.4-10.4); Monocytes # 0.5 10^3/uL (0.2-0.9); Monocytes % 6.6 %; Neutrophils # 5.75 10^3/uL (1.8-7.7); Neutrophils % 71.4 %; Nucleated Red Blood Cells % 0 %; Platelet Count 250 10^3/cmm (130-400); Red Blood Count 4.51 10^6/uL (4.1-5.3); Red Cell Distribution Width 15.1 % (12.1-15.1); White Blood Count 8.1 10^3/uL (4.0-10.0)
[2022-03-27] MEDS: sodium chloride 0.9% 1,000 ML 999 ML IV (16:01)
[2022-03-27] MEDS: NIFEdipine ER (24 hr) 30 mg Tablet PO (16:01)
[2022-03-27 16:04] VITALS: BP 161/109; PULSE 101; RESP 18; O2SAT 96
[2022-03-27 16:18] LABS: Anion Gap 16.7 (5-19); Blood Urea Nitrogen 11 mg/dL (6-20); Calcium 9.6 mg/dL (8.5-10.5); Carbon Dioxide 21 mmol/L (22-29); Chloride 101 mmol/L (98-107); Glomerular Filtration Rate 120.8 mL/min (90-130); Glucose 102 mg/dL (65-115); Osmolality Calculated 280 mOsm/kg (285-295); Potassium 3.7 mmol/L (3.5-5.1); Sodium 135 mmol/L (136-145)
[2022-03-27 16:20] LABS: Troponin T (5th) Once 6 ng/L (0-10)
[2022-03-27 16:58] VITALS: BP 156/96; PULSE 68; RESP 18; O2SAT 96
[2022-03-27 17:05] VITALS: BP 169/91; PULSE 96; RESP 18; TEMP 36.7; O2SAT 96
== END 2022-03-27 17:06 | disposition home or self-care (01) ==
PROVIDERS: Emergency Provider Emergency Medicine; PCP Family Medicine
DX: I10 Essential (primary) hypertension (principal)
CPT/HCPCS: 80048; 84484; 85025; 93005; 99283; J7030

== ENCOUNTER → 2022-05-06 09:55 | Outpatient (BNVA) | payer MEDICAID, SELFPAY | PROVIDERS: Visit Provider Family Medicine | DX: I10 Essential (primary) hypertension (principal) | CPT/HCPCS: 80053; 85025 ==

== ENCOUNTER 2023-02-01 11:51 | Emergency (ER) | payer MEDICAID, SELFPAY ==
[2023-02-01 12:04] VITALS: BP 139/83; PULSE 110; RESP 16; O2SAT 99; BMI 32.5
[2023-02-01 12:31] VITALS: BP 154/89; PULSE 104; RESP 14; O2SAT 100
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
[2023-02-01 12:46] LABS: Basophils % 0.5 %; Eosinophils # 0.1 10^3/uL (0.0-0.8); Eosinophils % 1.4 %; Hematocrit 33.2 % (37.0-47.0); Hemoglobin 9.9 g/dL (11.5-15.3); Lymphocytes # 1.5 10^3/uL (0.8-4.8); Lymphocytes % 17.6 %; Mean Corpuscular HGB Conc 29.8 g/dL (30.0-36.0); Mean Corpuscular Hemoglobin 23.4 pg (28.0-34.0); Mean Corpuscular Volume 78.5 fl (81-99); Mean Platelet Volume 8.9 fL (7.4-10.4); Monocytes # 0.5 10^3/uL (0.2-0.9); Monocytes % 6.1 %; Neutrophils % 73.9 %; Nucleated Red Blood Cells % 0 %; Platelet Count 254 10^3/cmm (130-400); Red Blood Count 4.23 10^6/uL (4.1-5.3); Red Cell Distribution Width 15.9 % (12.1-15.1); White Blood Count 8.5 10^3/uL (4.0-10.0)
[2023-02-01 13:05] LABS: Alanine Aminotransferase 14 U/L (0-33); Albumin Level 4.2 g/dL (3.5-5.2); Alkaline Phosphatase 61 U/L (35-105); Anion Gap 13.9 (5-19); Aspartate Amino Transferase 13 U/L (0-32); Blood Urea Nitrogen 15 mg/dL (6-20); Calcium 9.2 mg/dL (8.5-10.5); Carbon Dioxide 24 mmol/L (22-29); Chloride 105 mmol/L (98-107); Creatinine Clr Calc Pharmacy 150.9424; Globulin 2.9 g/dL (1.3-4.6); Glomerular Filtration Rate 120.8 mL/min (90-130); Glucose 100 mg/dL (65-115); Osmolality Calculated 289 mOsm/kg (285-295); Potassium 3.9 mmol/L (3.5-5.1); Sodium 139 mmol/L (136-145); Total Bilirubin 0.2 mg/dL (0.15-1.2); Total Protein 7.1 g/dL (6.6-8.7)
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
[2023-02-01] MEDS: iohexol 350 mg/mL 500 mL Btl (per mL) IV (13:35)
[2023-02-01 13:46] VITALS: BP 148/86; PULSE 117; RESP 20; O2SAT 98
[2023-02-01 13:56] VITALS: RESP 16; O2SAT 100
[2023-02-01] MEDS: fentaNYL 50 mcg/mL INJ 2mL IVP (13:56)
--- NOTE | 2023-02-08 10:48 | DCPLANNER ---
regional environmental manager called patient due to no primary care physician - no answer at this time.
== END 2023-02-01 15:01 | disposition home or self-care (01) ==
PROVIDERS: Emergency Provider Emergency Medicine
DX: S80.11XA Contusion of right lower leg, initial encounter (principal); S60.222A Contusion of left hand, initial encounter; S50.01XA Contusion of right elbow, initial encounter; V44.5XXA Car driver injured in collision with heavy transport vehicle or bus in traffic accident, initial encounter
CPT/HCPCS: 70450; 71260; 72125; 73090; 73130; 73590; 74177; 80053; 85025; 96374; 99285; J3010; Q9967

== ENCOUNTER 2023-09-12 09:39 | Observation (INO) | payer MEDICAID, SELFPAY ==
[2023-09-12] VITALS (12 sets, daily range): BP systolic 125–167; BP diastolic 80–127; PULSE 77–107; RESP 16–20; TEMP 36.7–37.3; O2SAT 95–100; BMI 37.8
--- NOTE | 2023-09-12 09:53 | ED_ITS ---
Documented by User: ANGLE Puente 09/12/23 11:53 HPI - Abdominal Pain General: Chief Complaint: Abdominal Pain Stated Complaint: right side body pain, NV Time Seen by Provider: 09/12/23 09:41 Source: patient Mode of arrival: ambulatory Limitations: no limitations History of Present Illness: Patient is a 28-year-old female at approximately 6 to 7 weeks here for acute onset right abdominal/pelvic pain that started this morning. Significant other states pain went from 0-10 abruptly. He states he ran a warm bath for patient thinking this might ease her discomfort but states she got out of the bathtub and was rolling around on the bed in extreme discomfort thus prompting their visit to the emergency department. Patient states she has felt incredibly nauseous secondary to the pain. She has not had any episodes of emesis. She states pain is primarily to her right lower abdomen/pelvis but radiates over to the left side and into her right flank and back. Patient states has only been confirmed via home test. She is not having any vaginal bleeding. Denies urinary symptoms. No history of kidney or ureter stones. No previous history of ectopic pregnancies. No history of tubal ligation. MD elicited complaint: abdominal pain Pertinent past history: none Onset (ago): hour(s) Pain Consistency: constant Location: RLQ, LLQ, Pelvis and Other (flank/back) Severity: severe Quality: stabbing and sharp Radiation: none Migration to: no migration Exacerbating factors: nothing Relieving factors: nothing Associated Symptoms: Reports nausea; Denies change in bowel habits, chills, dysuria, fever(s), heartburn, hematochezia, hematemesis, melena and vomiting Related Data: Patient : Yes Review of Systems Const: Denies: fever(s), chills, body aches, fatigue or malaise Card: Denies: chest pain Resp: Denies: dyspnea GI: Reports: abdominal pain and nausea; Denies: vomiting, hematemesis, heartburn, change in bowel habits, hematochezia or melena : Reports: flank pain; Denies: difficulty voiding, dysuria, urinary frequency, urinary urgency or urinary hesitancy Musc: Reports: back pain; Denies: neck pain, extremity pain or joint pain Skin/Breast: Denies: rash Neuro: Denies: headache(s), numbness in extremities, weakness in extremities, sensory changes or difficulty walking PFSH ED PFSH: Medical History Elevated blood pressure reading Schizoaffective disorder, bipolar type Family History Other CAD (coronary artery disease) Cancer Diabetes Family history of premature coronary artery disease Hyperlipidemia Hypertension Psychiatric illness Stroke Suicide Denies family history of Clotting disorder Dementia Chronic kidney disease (CKD) Anesthesia complication Bleeding disorder Lung disease Social History Smoking and tobacco/nicotine status: never used tobacco/nicotine Alcohol intake: current Alcohol intake frequency: few times a week Substance/Drug Use: former Adopted: No Caregiver/support person: Yes Lives independently: Yes Household members: spouse and children Housing: House Marital status: Physical Exam Const: COMMON NORMALS: patient oriented x3, no limitations, alert and well nourished GENERAL APPEARANCE: cooperative and in distress (appears significantly uncomfortable; restless ) NUTRITIONAL APPEARANCE: overweight ORIENTATION/CONSCIOUSNESS: Yes awake, Yes oriented to person, Yes oriented to place and Yes oriented to time HENMT: COMMON NORMALS: normocephalic and atraumatic HEAD & SCALP: normal to inspection, normocephalic and atraumatic Eye: COMMON NORMALS: no scleral icterus Resp: COMMON NORMALS: normal respiratory effort and clear to auscultation bilaterally AUSCULTATION: clear to auscultation bilaterally Cardio: COMMON NORMALS: regular rate and regular rhythm RATE: regular rate RHYTHM: regular rhythm GI: COMMON NORMALS: Normal to inspection, nondistended, normoactive bowel sounds present, No hepatosplenomegaly present and no masses INSPECTION: Yes normal to inspection PALPATION: Yes Tenderness to palpation present (GI) (throughout lower abdomen/pelvis but mainly to RLQ/R pelvis ), Yes Guarding due to palpation present (GI) and Yes No hepatosplenomegaly present : BLADDER/KIDNEY EXAM: Yes CVA tenderness on the right Back/Pelvis: COMMON NORMALS: thoracic and lumbar spine normal to inspection, no thoracic nor lumbar tenderness and thoraco-lumbar ROM normal GENERAL BACK: Yes CVA tenderness Extremity: COMMON NORMALS: normal to inspection GENERAL: Yes normal exam except as noted Neuro: SHILPA COMA SCALE: document GCS findings Shilpa coma scale eye opening: Spontaneous [place] coma scale verbal response: Orientated [place] coma scale motor response: Obey commands Shilpa coma scale total score: 15 COMMON NORMALS: patient oriented x3, moves all extremities, no focal motor deficits and no sensory deficits noted SENSORIUM/ORIENTATION: Yes alert, Yes oriented to person, Yes oriented to place and Yes oriented to time Skin: COMMON NORMALS: no rashes or lesions noted GENERAL SKIN EXAM: no rashes or lesions noted Course ED course: US was ordered directly after my examination as I wanted to promptly rule out an ectopic . US was completed and shows an intrauterine gestational sac along with a right ovarian torsion. I have spoken to Dr. Gupta and he is coming to evaluate patient. Consultations: Consultation #1: Dr. Gupta-came and evaluated patient in the ED; would like her admitted to labor and delivery Vital Signs: Vital signs: Vital Signs Temperature 98.1 F 09/12/23 22:47 Pulse Rate 98 09/12/23 22:47 Respiratory Rate 16 09/12/23 22:47 Blood Pressure 143/82 09/12/23 22:47 Pulse Oximetry 98 09/12/23 22:47 Oxygen Delivery Me thod Room Air 09/12/23 21:00 MDM - Abdominal Pain Medical Decision Making Patient will be admitted to labor and delivery to Dr. Gupta. Dr. Alfonso aware of patient will write admit orders. Medical Records I reviewed the patient's medical records. Lab Data I reviewed the patient's lab results. 09/12/23 10:02 09/12/23 10:02 Labs/Radiology: Laboratory Results WBC 7.06 10^3/uL (3.29-11.43) 09/12/23 10:02 RBC 4.50 10^6/uL (3.85-5.65) 09/12/23 10:02 Hgb 10.70 g/dL (11.27-16.99) L 09/12/23 10:02 Hct 34.6 % (36-47) L 09/12/23 10:02 MCV 76.9 fl (85-98) L 09/12/23 10:02 MCH 23.8 pg (27-33) L 09/12/23 10:02 MCHC 30.9 g/dL (30-55) 09/12/23 10:02 RDW 16.9 % (12.1-15.1) H 09/12/23 10:02 Plt Count 292 10^3/cmm (157-399) 09/12/23 10:02 MPV 9.0 fL (7.4-10.4) 09/12/23 10:02 Neut % (Auto) 62.0 % 09/12/23 10:02 Lymph % (Auto) 30.5 % 09/12/23 10:02 [place] % (Auto) 4.5 % 09/12/23 10:02 Eos % (Auto) 2.3 % 09/12/23 10:02 Baso % (Auto) 0.4 % 09/12/23 10:02 Neut # (Auto) 4.38 10^3/uL (1.8-7.7) 09/12/23 10:02 Lymph # (Auto) 2.2 10^3/uL (0.8-4.8) 09/12/23 10:02 [place] # (Auto) 0.3 10^3/uL (0.2-0.9) 09/12/23 10:02 Eos # (Auto) 0.2 10^3/uL (0.0-0.8) 09/12/23 10:02 Baso # (Auto) 0.0 10^3/uL (0.0-0.1) 09/12/23 10:02 Nucleated RBC % (auto) 0 % 09/12/23 10:02 Nucleated RBCs # 0.0 /100WBC 09/12/23 10:02 Sodium 136 mmol/L (136-145) 09/12/23 10:02 Potassium 3.2 mmol/L (3.5-5.1) L 09/12/23 10:02 Chloride 101 mmol/L (98-107) 09/12/23 10:02 Carbon Dioxide 18 mmol/L (22-29) L 09/12/23 10:02 Anion Gap 20.2 (5-19) H 09/12/23 10:02 BUN 8 mg/dL (6-20) 09/12/23 10:02 Creatinine 0.6 mg/dL (0.5-0.9) 09/12/23 10:02 GFR Calculation 119.9 mL/min (90-130) 09/12/23 10:02 Glucose 139 mg/dL (65-115) H 09/12/23 10:02 Calculated Osmolality 283 mOsm/kg (285-295) L 09/12/23 10:02 Calcium 9.4 mg/dL (8.5-10.5) 09/12/23 10:02 Total Bilirubin 0.2 mg/dL (0.15-1.2) 09/12/23 10:02 AST 12 U/L (0-32) 09/12/23 10:02 ALT 13 U/L (0-33) 09/12/23 10:02 Alkaline Phosphatase 80 U/L (35-105) 09/12/23 10:02 Total Protein 7.5 g/dL (6.6-8.7) 09/12/23 10:02 Albumin 4.3 g/dL (3.5-5.2) 09/12/23 10:02 Globulin 3.2 g/dL (1.3-4.6) 09/12/23 10:02 Lipase 19 U/L (13-60) 09/12/23 10:02 Ser , Semi-Qnt 4423.00 mIU/mL 09/12/23 10:02 Imaging Data US OB: Radiologist's impression: IMPRESSION: 1.? Intrauterine gestational sac estimated gestational age; 5w4d. No pole in this very early . Recommend short interval follow-up. 2.? Enlarged RIGHT ovary with large associated hemorrhagic cyst. No flow detected in the RIGHT ovary. Findings suspicious for ovarian torsion. This localizes to patient area of pain. 3.? Small amount of free fluid in the cul-de-sac. Notified ANGLE Puente at 09/12/2023 11:07 AM. All radiology interpretation(s) finalized by discharge Discharge Plan Discharge Patient Disposition: Admitted As Inpatient Admit Provider: Helio Gupta Clinical Impression: Torsion of right ovary, First trimester Condition: Stable Discharge Diet: Usual diet Discharge Activity: Increase activity as tolerated Coding Level of Care Code ED Bobbin Collector for Chg Fwd Documented by User: Jeremi Alfonso DO 09/14/23 07:00 HPI - Abdominal Pain General: Chief Complaint: Abdominal Pain Stated Complaint: right side body pain, NV Time Seen by Provider: 09/12/23 09:41 [facility] ED PFSH: Medical History Elevated blood pressure reading Schizoaffective disorder, bipolar type Family History Other CAD (coronary artery disease) Cancer Diabetes Family history of premature coronary artery disease Hyperlipidemia Hypertension Psychiatric illness Stroke Suicide Denies family history of Clotting disorder Dementia Chronic kidney disease (CKD) Anesthesia complication Bleeding disorder Lung disease Social History Smoking and tobacco/nicotine status: never used tobacco/nicotine Alcohol intake: current Alcohol intake frequency: few times a week Substance/Drug Use: former Adopted: No Caregiver/support person: Yes Lives independently: Yes Household members: spouse and children Housing: House Marital status: Physical Exam 2 Neuro: SHILPA COMA SCALE: document GCS findings [place] coma scale total score: 15 Course Vital Signs: Vital signs: Vital Signs Temperature 98.1 F 09/12/23 22:47 Pulse Rate 98 09/12/23 22:47 Respiratory Rate 16 09/12/23 22:47 Blood Pressure 143/82 09/12/23 22:47 Pulse Oximetry 98 09/12/23 22:47 Oxygen Delivery Me thod Room Air 09/12/23 21:00 MDM - Abdominal Pain Medical Decision Making Patient will be admitted to labor and delivery to Dr. Gupta. Dr. Alfonso aware of patient will write admit orders. Chart reviewed and patient discussed with midlevel. Agree with assessment and plan. Lab Data 09/12/23 10:02 09/12/23 10:02 Labs/Radiology: Laboratory Results WBC 7.06 10^3/uL (3.29-11.43) 09/12/23 10:02 RBC 4.50 10^6/uL (3.85-5.65) 09/12/23 10:02 Hgb 10.70 g/dL (11.27-16.99) L 09/12/23 10:02 Hct 34.6 % (36-47) L 09/12/23 10:02 MCV 76.9 fl (85-98) L 09/12/23 10:02 MCH 23.8 pg (27-33) L 09/12/23 10:02 MCHC 30.9 g/dL (30-55) 09/12/23 10:02 RDW 16.9 % (12.1-15.1) H 09/12/23 10:02 Plt Count 292 10^3/cmm (157-399) 09/12/23 10:02 MPV 9.0 fL (7.4-10.4) 09/12/23 10:02 Neut % (Auto) 62.0 % 09/12/23 10:02 Lymph % (Auto) 30.5 % 09/12/23 10:02 [place] % (Auto) 4.5 % 09/12/23 10:02 Eos % (Auto) 2.3 % 09/12/23 10:02 Baso % (Auto) 0.4 % 09/12/23 10:02 Neut # (Auto) 4.38 10^3/uL (1.8-7.7) 09/12/23 10:02 Lymph # (Auto) 2.2 10^3/uL (0.8-4.8) 09/12/23 10:02 [place] # (Auto) 0.3 10^3/uL (0.2-0.9) 09/12/23 10:02 Eos # (Auto) 0.2 10^3/uL (0.0-0.8) 09/12/23 10:02 Baso # (Auto) 0.0 10^3/uL (0.0-0.1) 09/12/23 10:02 Nucleated RBC % (auto) 0 % 09/12/23 10:02 Nucleated RBCs # 0.0 /100WBC 09/12/23 10:02 Sodium 136 mmol/L (136-145) 09/12/23 10:02 Potassium 3.2 mmol/L (3.5-5.1) L 09/12/23 10:02 Chloride 101 mmol/L (98-107) 09/12/23 10:02 Carbon Dioxide 18 mmol/L (22-29) L 09/12/23 10:02 Anion Gap 20.2 (5-19) H 09/12/23 10:02 BUN 8 mg/dL (6-20) 09/12/23 10:02 Creatinine 0.6 mg/dL (0.5-0.9) 09/12/23 10:02 GFR Calculation 119.9 mL/min (90-130) 09/12/23 10:02 Glucose 139 mg/dL (65-115) H 09/12/23 10:02 Calculated Osmolality 283 mOsm/kg (285-295) L 09/12/23 10:02 Calcium 9.4 mg/dL (8.5-10.5) 09/12/23 10:02 Total Bilirubin 0.2 mg/dL (0.15-1.2) 09/12/23 10:02 AST 12 U/L (0-32) 09/12/23 10:02 ALT 13 U/L (0-33) 09/12/23 10:02 Alkaline Phosphatase 80 U/L (35-105) 09/12/23 10:02 Total Protein 7.5 g/dL (6.6-8.7) 09/12/23 10:02 Albumin 4.3 g/dL (3.5-5.2) 09/12/23 10:02 Globulin 3.2 g/dL (1.3-4.6) 09/12/23 10:02 Lipase 19 U/L (13-60) 09/12/23 10:02 Ser , Semi-Qnt 4423.00 mIU/mL 09/12/23 10:02 Discharge Plan Discharge Patient Disposition: Admitted As Inpatient Admit Provider: Helio Gupta Clinical Impression: Torsion of right ovary, First trimester Condition: Stable Discharge Diet: Usual diet Discharge Activity: Increase activity as tolerated Coding Level of Care Code ED Bobbin Collector for Geremias Maguire
--- NOTE | 2023-09-12 09:57 | US_ITS ---
WS: [id number] ULTRASOUND EARLY TECHNIQUE: Transabdominal sonography of the pelvis was performed. Followed by transvaginal sonography to better evaluate the uterus and ovaries. CLINICAL INFORMATION: R pelvic pain LMP:? Beta hCG: Unknown. COMPARISON: None. FINDINGS: Technically difficult study due to pain UTERUS AND GESTATIONAL SAC Intrauterine gestations: Mean gestational sac diameter: 0.72 cm; Estimated gestational age: 5w4d Subchorionic hemorrhage: None. No visualized pole in this very early . OVARIES Right ovary: Enlarged RIGHT ovary measuring 6.8 x 4.7 x 6.5 cm. Large hemorrhagic cyst RIGHT ovary wi th internal debris measuring 3.0 x 3.1 cm. Smaller adjacent cyst. No flow detected in the RIGHT ovary suspicious for ovarian torsion. This localizes to patient's area of pain. Left ovary: Not visualized FREE FLUID Present IMPRESSION: 1. Intrauterine gestational sac estimated gestational age; 5w4d. No pole in this very early pr egnancy. Recommend short interval follow-up. 2. Enlarged RIGHT ovary with large associated hemorrhagic cyst. No flow detected in the RIGHT ovary. Findings suspicious for ovarian torsion. This localizes to patient area of pain. 3. Small amount of free fluid in the cul-de-sac. Notified ANGLE Puente at 09/12/2023 11:07 AM.
[2023-09-12] MEDS: sodium chloride 0.9% 1,000 ML 999 ML IV (10:10)
[2023-09-12] MEDS: morphine 4 mg/mL SDV 1 mL IVP (10:13)
[2023-09-12] MEDS: metoclopramide 5 mg/mL SDV 2 mL 10 MG IVP (10:18)
[2023-09-12 10:28] LABS: Basophils % 0.4 %; Eosinophils # 0.2 10^3/uL (0.0-0.8); Eosinophils % 2.3 %; Hematocrit 34.6 % (36-47); Lymphocytes # 2.2 10^3/uL (0.8-4.8); Lymphocytes % 30.5 %; Mean Corpuscular HGB Conc 30.9 g/dL (30-55); Mean Corpuscular Hemoglobin 23.8 pg (27-33); Mean Corpuscular Volume 76.9 fl (85-98); Monocytes # 0.3 10^3/uL (0.2-0.9); Monocytes % 4.5 %; Neutrophils # 4.38 10^3/uL (1.8-7.7); Nucleated Red Blood Cells % 0 %; Platelet Count 292 10^3/cmm (157-399); Red Cell Distribution Width 16.9 % (12.1-15.1); White Blood Count 7.06 10^3/uL (3.29-11.43)
[2023-09-12 10:49] LABS: Alanine Aminotransferase 13 U/L (0-33); Albumin Level 4.3 g/dL (3.5-5.2); Alkaline Phosphatase 80 U/L (35-105); Anion Gap 20.2 (5-19); Aspartate Amino Transferase 12 U/L (0-32); Blood Urea Nitrogen 8 mg/dL (6-20); Calcium 9.4 mg/dL (8.5-10.5); Carbon Dioxide 18 mmol/L (22-29); Chloride 101 mmol/L (98-107); Globulin 3.2 g/dL (1.3-4.6); Glomerular Filtration Rate 119.9 mL/min (90-130); Glucose 139 mg/dL (65-115); Lipase 19 U/L (13-60); Osmolality Calculated 283 mOsm/kg (285-295); Potassium 3.2 mmol/L (3.5-5.1); Sodium 136 mmol/L (136-145); Total Bilirubin 0.2 mg/dL (0.15-1.2); Total Protein 7.5 g/dL (6.6-8.7)
[2023-09-12] MEDS: HYDROmorphone 1 mg/mL INJ 1 mL 0.5 MG IVP (10:50)
--- NOTE | 2023-09-12 10:51 | PC.PHAR ---
pt states she no longer takes amlodipine 5mg daily prn,aspirin 325mg q6h prn or chlorthalidone 25mg daily prn those medications were on previously entered med list but are now taken out due to pt stating she is not taking-pt states the only thing she takes is Tylenol prn
--- NOTE | 2023-09-12 10:56 | PC.PHAR ---
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
[2023-09-12] MEDS: ondansetron 2 mg/ML SDV 2 mL 4 MG IVP (11:12)
--- NOTE | 2023-09-12 13:35 | PM.OBGYHP ---
Providers/Chief Complaint Admitting Physician: Helio Gupta MD Primary [employer]: Helio Gupta MD Chief Complaint: right side body pain, NV HPI [employer] History of Present Illness 28 y.o. A1 Had + test at home Has not had care yet At approximately 6-7 weeks by dates Presented to ER c/o sudden onset of right pelvic pain this morning Described as sharp, severe, constant No vaginal bleeding, fever, chills No dysuria, blood in urine No h/o kidney stones + nausea due to pain No vomiting NKDA Present Details : 5 Para: 3 Medications/Allergies Home Medications Medication Instructions Recorded Confirmed Last Taken Type acetaminophen 500 mg tablet 500 - 1,000 mg PO Q6H PRN Pain 09/12/23 09/12/23 09/12/23 07:00 History Allergies Allergy/AdvReac Type Severity Reaction Status Date / Time No Known Allergies Allergy Verified 09/12/23 10:51 PFSH [employer] PFSH: Medical History Elevated blood pressure reading Schizoaffective disorder, bipolar type Family History Other CAD (coronary artery disease) Cancer Diabetes Family history of premature coronary artery disease Hyperlipidemia Hypertension Psychiatric illness Stroke Suicide Denies family history of Clotting disorder Dementia Chronic kidney disease (CKD) Anesthesia complication Bleeding disorder Lung disease Social History Smoking and tobacco/nicotine status: never used tobacco/nicotine Alcohol intake: current Alcohol intake frequency: few times a week Substance/Drug Use: former Adopted: No Caregiver/support person: Yes Lives independently: Yes Household members: spouse and children Housing: House Marital status: Vitals/I&O/Wt Last Vital Signs Temp 98.1 F 09/12/23 22:47 Pulse 98 09/12/23 22:47 Resp 16 09/12/23 22:47 BP 143/82 09/12/23 22:47 Pulse Ox 98 09/12/23 22:47 O2 Del Method Room Air 09/12/23 21:00 09/12/23 09/12/23 09/13/23 14:59 22:59 06:59 Intake Total 1000 / 1000 Balance 1000 / 1000 Weight last 48 hrs Weight 220 lb Physical Exam Narrative: Weight 220 lbs; 5?4? Afebrile, VS normal Awake, alert In mild discomfort HEENT: normal Lungs: clear Cor: RRR Abd: soft, nondistended Mild tenderness lower quadrants No rebound Ext: normal Data 09/12/23 10:02 09/12/23 10:02 Results Labs OB ([facility]): Obstetrics US 09/12/23 Hct 34.6 % (36-47) L 09/12/23 Hgb 10.70 g/dL (11.27-16.99) L 09/12/23 Plt Count 292 10^3/cmm (157-399) 09/12/23 TSH 0.75 uIU/mL (0.27-4.20) 09/02/20 Uric Acid 3.7 mg/dL (2.4-5.7) 09/10/20 Ser , Semi-Qnt 4423.00 mIU/mL 09/12/23 [facility] Labs 09-12-23 WBC 7 Hgb 10.7 Quant b 4,423 UA negative [facility] Ultrasound Pelvic sono 09-12-23 + gestational sac, approx. 5 w No pole seen Right ovarian cyst with internal debris 3 cm A&P Assessment and plan (1) Abdominal pain: Sudden onsent Normal WBC Afebrile No acute abdomen on abdominal exam Pelvic sono c/w possible hemorrhagic ovarian cyst vs. ovarian torsion Clinical exam at this time favor hemorrhagic ovarian cyst without torsion Doubt appendicitis, UTI, pyelonephritis, renal colic, ectopic Plan to admit patient for observation Will keep NPO for now Will perform serial clinical exams Possibility discussed with patient that surgery may be needed if her pain worsens or does not improve (2) First trimester : Early gestation Possible early intrauterine gestation vs. early threatened Ab vs. ectopic [facility] Medical Necessity Statement*: patient with early gestation, sudden onset of severa abdominal pain Coding Level of Care Code Acute Code for Chg Fwd Diagnoses Abdominal pain R10.9 First trimester Z34.91 Time Spent (min) 60
[2023-09-12 15:21] LABS: Add Urine Microscopic? NO; Charge for UA Resulting for Rev
[2023-09-12 15:34] LABS: Bilirubin Urine Neg (Negative); Blood Urine Neg (Negative); Glucose Urine UA Norm (Normal); Ketones Urine Negative (Negative); Leukocyte Esterase Urine Negative (Negative); Nitrate Urine Negative (Negative); Protein Urine Neg (Negative); Urine Appearance Clear (CLEAR); Urine Color Colorless (Yellow); Urobilinogen Urine Norm (Negative); pH Urine 7 (5-7)
[2023-09-12] MEDS: D5-NS 0.45% + KCL 20 mEq 20 MEQ/1,000 ML BAG 100 MEQ IV (16:05)
[2023-09-12] MEDS: acetaminophen 325 mg Tablet 650 MG PO (18:07)
--- NOTE | 2023-09-12 21:35 | PM.OBGYDC ---
Discharge Providers CONTINUOUS PROCESS [employer] Date of Admission: 09/12/23 12:27 Date of Discharge: 09/12/23 Attending Provider at Admission: Helio Gupta MD Attending Provider at Discharge: Helio Gupta MD Consults: none Diagnoses at Discharge Discharge Diagnosis (1) First trimester : Details from hospital stay: quantitative bhcg 4,423 sono - + gestational sac; no pole Status: Acute (2) Abdominal pain: Details from hospital stay: clinical exam and ultrasound c/w hemorrhagic ovarian cyst pain improved Status: Acute Reason for Visit Reason for Visit: right side body pain, NV Hospital Course Hospital Course patient stated pain resolved plan discharge home Physical Exam Narrative: Comfortable Afebrile Awake, alert Abd: soft, nondistended Minimal tenderness right lower quadrant No rebound Discharge Data Studies Completed and Pending Completed Studies During Hospitalization Category Date Time Status US OB <=14 wk fetus w transvag Stat Ultrasound 09/12/23 09:57 Completed Laboratory Results WBC 7.06 10^3/uL (3.29-11.43) 09/12/23 10:02 RBC 4.50 10^6/uL (3.85-5.65) 09/12/23 10:02 Hgb 10.70 g/dL (11.27-16.99) L 09/12/23 10:02 Hct 34.6 % (36-47) L 09/12/23 10:02 MCV 76.9 fl (85-98) L 09/12/23 10:02 MCH 23.8 pg (27-33) L 09/12/23 10:02 MCHC 30.9 g/dL (30-55) 09/12/23 10:02 RDW 16.9 % (12.1-15.1) H 09/12/23 10:02 Plt Count 292 10^3/cmm (157-399) 09/12/23 10:02 MPV 9.0 fL (7.4-10.4) 09/12/23 10:02 Neut % (Auto) 62.0 % 09/12/23 10:02 Lymph % (Auto) 30.5 % 09/12/23 10:02 [place] % (Auto) 4.5 % 09/12/23 10:02 Eos % (Auto) 2.3 % 09/12/23 10:02 Baso % (Auto) 0.4 % 09/12/23 10:02 Neut # (Auto) 4.38 10^3/uL (1.8-7.7) 09/12/23 10:02 Lymph # (Auto) 2.2 10^3/uL (0.8-4.8) 09/12/23 10:02 [place] # (Auto) 0.3 10^3/uL (0.2-0.9) 09/12/23 10:02 Eos # (Auto) 0.2 10^3/uL (0.0-0.8) 09/12/23 10:02 Baso # (Auto) 0.0 10^3/uL (0.0-0.1) 09/12/23 10:02 Nucleated RBC % (auto) 0 % 09/12/23 10:02 Nucleated RBCs # 0.0 /100WBC 09/12/23 10:02 Sodium 136 mmol/L (136-145) 09/12/23 10:02 Potassium 3.2 mmol/L (3.5-5.1) L 09/12/23 10:02 Chloride 101 mmol/L (98-107) 09/12/23 10:02 Carbon Dioxide 18 mmol/L (22-29) L 09/12/23 10:02 Anion Gap 20.2 (5-19) H 09/12/23 10:02 BUN 8 mg/dL (6-20) 09/12/23 10:02 Creatinine 0.6 mg/dL (0.5-0.9) 09/12/23 10:02 GFR Calculation 119.9 mL/min (90-130) 09/12/23 10:02 Glucose 139 mg/dL (65-115) H 09/12/23 10:02 Calculated Osmolality 283 mOsm/kg (285-295) L 09/12/23 10:02 Calcium 9.4 mg/dL (8.5-10.5) 09/12/23 10:02 Total Bilirubin 0.2 mg/dL (0.15-1.2) 09/12/23 10:02 AST 12 U/L (0-32) 09/12/23 10:02 ALT 13 U/L (0-33) 09/12/23 10:02 Alkaline Phosphatase 80 U/L (35-105) 09/12/23 10:02 Total Protein 7.5 g/dL (6.6-8.7) 09/12/23 10:02 Albumin 4.3 g/dL (3.5-5.2) 09/12/23 10:02 Globulin 3.2 g/dL (1.3-4.6) 09/12/23 10:02 Lipase 19 U/L (13-60) 09/12/23 10:02 Ser , Semi-Qnt 4423.00 mIU/mL 09/12/23 10:02 Urine Color Colorless (Yellow) 09/12/23 13:09 Urine Appearance Clear (CLEAR) 09/12/23 13:09 Urine pH 7 (5-7) 09/12/23 13:09 Ur Specific [place] 1.010 (1.005-1.030) 09/12/23 13:09 Urine Protein Neg (Negative) 09/12/23 13:09 Urine Glucose (UA) Norm (Normal) 09/12/23 13:09 Urine Ketones Negative (Negative) 09/12/23 13:09 Urine Blood Neg (Negative) 09/12/23 13:09 Urine Nitrate Negative (Negative) 09/12/23 13:09 Urine Bilirubin Neg (Negative) 09/12/23 13:09 Urine Urobilinogen Norm mg/dL (Negative) 09/12/23 13:09 Ur Leukocyte Esterase Negative (Negative) 09/12/23 13:09 Vitals Last Vital Signs Temp 98.1 F 09/12/23 22:47 Pulse 98 09/12/23 22:47 Resp 16 09/12/23 22:47 BP 143/82 09/12/23 22:47 Pulse Ox 98 09/12/23 22:47 O2 Del Method Room Air 09/12/23 21:00 Results Labs OB ([facility]): Obstetrics US 09/12/23 Hct 34.6 % (36-47) L 09/12/23 Hgb 10.70 g/dL (11.27-16.99) L 09/12/23 Plt Count 292 10^3/cmm (157-399) 09/12/23 TSH 0.75 uIU/mL (0.27-4.20) 09/02/20 Uric Acid 3.7 mg/dL (2.4-5.7) 09/10/20 Ser , Semi-Qnt 4423.00 mIU/mL 09/12/23 [employer] Labs 09-12-23 WBC 7 Hgb 10.7 Quant b 4,423 UA negative [employer] Ultrasound Pelvic sono 09-12-23 + gestational sac, approx. 5 w No pole seen Right ovarian cyst with internal debris 3 cm Discharge Plan Discharge Patient Disposition: Home Condition: Stable Prescriptions: Continued acetaminophen 500 mg Tablet 500 - 1,000 mg PO Q6H PRN (Reason: Pain) Discharge Orders: Discharge Order (Routine); Ordered 09/12/23 Ordered By: Helio Gupta Discharge Diet: Usual diet Discharge Activity: Increase activity as tolerated Patient Instructions: Ovarian Cyst (DC), at 7 to 10 Weeks (DC), Opioid Safety Activity Restrictions/Additional Instructions: [facility] to make appointment for blood draw on Monday. Discharge Attestations CONTINUOUS PROCESS [employer]UM Time Spent in Discharge Care*: less than 30 min Coding Level of Care Code Acute Code for Chg Fwd Diagnoses First trimester Z34.91 Abdominal pain R10.9 Time Spent (min) 25
--- NOTE | 2023-09-12 21:35 | P.PN_ITS ---
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 Vitals/I&O/Wt Last Vital Signs Temp 98.1 F 09/12/23 22:47 Pulse 98 09/12/23 22:47 Resp 16 09/12/23 22:47 BP 143/82 09/12/23 22:47 Pulse Ox 98 09/12/23 22:47 O2 Del Method Room Air 09/12/23 21:00 09/12/23 09/12/23 09/13/23 14:59 22:59 06:59 Intake Total 1000 / 1000 Balance 1000 / 1000 Weight last 48 hrs Weight 220 lb Physical Exam Narrative: Comfortable Afebrile Awake, alert Abd: soft, nondistended Minimal tenderness right lower quadrant No rebound Data 09/12/23 10:02 09/12/23 10:02 A&P Assessment and plan (1) First trimester : Early gestation Possible early intrauterine gestation vs. early threatened Ab vs. ectopic Will need to follow serial bhcg Plan return to see me in OB clinic on September 18, 2023 (2) Abdominal pain: Likely hemorrhagic ovarian cyst Pain improved Plan discharge home Instructions / precautions given Call / return to ER immediately if bleeding, pain, fever, chills, nausea, vomiting Attestations Medical Necessity Statement*: patient with early gestation, abdominal pain Coding Level of Care Code Acute Code for Chg Fwd Diagnoses First trimester Z34.91 Abdominal pain R10.9 Time Spent (min) 30
== END 2023-09-12 22:59 | disposition home or self-care (01) ==
LOC: ER 11:53 → OBGYN 12:28
PROVIDERS: Admitting Provider Obstetrics & Gynecology; Emergency Provider Physician Assistant; Visit Provider Obstetrics & Gynecology
DX: Z34.91 Encounter for supervision of normal pregnancy, unspecified, first trimester (principal); Z3A.00 Weeks of gestation of pregnancy not specified; R10.9 Unspecified abdominal pain; N83.201 Unspecified ovarian cyst, right side
CPT/HCPCS: 76801; 76817; 80053; 81003; 83690; 84702; 85025; 96361; 96365; 96366; 96375; 99285; G0378; J1170; J2270; J2405; J2765; J7030

== ENCOUNTER 2023-09-17 10:41 | Emergency (ER) | payer MEDICAID, SELFPAY ==
[2023-09-17 10:50] VITALS: BP 176/111; PULSE 103; RESP 14; TEMP 36.4; O2SAT 99; BMI 37.8
--- NOTE | 2023-09-17 11:43 | USR_ITS ---
PROCEDURE INFORMATION: Exam: US Pelvis, Transvaginal Exam date and time: 09/17/2023 12:35 PM Age: 28 years old Clinical indication: Other: Heavy bleeding; Additional info: Miscarriage TECHNIQUE: Imaging protocol: Real-time transvaginal pelvic ultrasound with image documentation. Transvaginal imaging was used for better evaluation of the endometrium, adnexa, and/or cervix. COMPARISON: US OB <=14 wk fetus w transvag 09/12/2023 10:29 AM FINDINGS: Uterus: The uterus measures 9.2 x 4.7 x 5.9 cm. Endometrium/endometrial canal are mildly heterogeneous and measures 9 mm. No intrauterine gestational sac is seen. Right ovary/adnexa: The right ovary measures 4.6 x 3.6 x 4.1 cm with a volume of 35.6 cc. There is a 4.0 x 3.4 x 4.0 cm septated cyst in the right ovary. A smaller simple cyst is adjacent to the larger cyst. Left ovary/adnexa: Left ovary not visualized. Intraperitoneal space: There is no free fluid in the cul-de-sac. US/US transvaginal [id number] IMPRESSION: 1. The endometrium/endometrial canal are mildly heterogeneous and measure 9 mm. Mild heterogeneity may represent hemorrhagic products. 2. The right ovary is enlarged and contains a 4.0 cm septated cyst.
[2023-09-17 12:11] LABS: Basophils % 0.3 %; Eosinophils # 0.1 10^3/uL (0.0-0.8); Eosinophils % 1.5 %; Hematocrit 32.6 % (36-47); Lymphocytes # 2.1 10^3/uL (0.8-4.8); Lymphocytes % 22.6 %; Mean Corpuscular HGB Conc 30.4 g/dL (30-55); Mean Corpuscular Hemoglobin 23.4 pg (27-33); Mean Corpuscular Volume 77.1 fl (85-98); Mean Platelet Volume 9.1 fL (7.4-10.4); Monocytes # 0.6 10^3/uL (0.2-0.9); Monocytes % 6.9 %; Neutrophils # 6.33 10^3/uL (1.8-7.7); Neutrophils % 68.4 %; Nucleated Red Blood Cells % 0 %; Platelet Count 259 10^3/cmm (157-399); Red Blood Count 4.23 10^6/uL (3.85-5.65); Red Cell Distribution Width 16.4 % (12.1-15.1); White Blood Count 9.26 10^3/uL (3.29-11.43)
--- NOTE | 2023-09-17 12:12 | W.ED.ABDPA2 ---
HPI - Abdominal Pain General: Chief Complaint: Abdominal Pain Stated Complaint: possible ovarian torsion,fever Time Seen by Provider: 09/17/23 11:29 Source: patient Mode of arrival: ambulatory Limitations: no limitations History of Present Illness: This 28-year-old G5, P3 patient presents to the ER with vaginal bleeding, fever and right lower quadrant abdominal pain. She was seen here last Monday (5 days ago) with vaginal bleeding. At that time, she was admitted for miscarriage and possible ovarian torsion. She has an appointment to see her lawyer probate, Dr. Pulliam, tomorrow. However, yesterday, patient developed fever with temperature of 101. There is associated right lower quadrant pain which patient has been taking Tylenol and Midol for. Patient reports that vaginal bleeding has worsened over the last 3 days and this morning she has been changing pads every 45 minutes. Here in the ER patient is afebrile though she notes that she took Tylenol this morning for a temperature of 101.5. She also reports some dizziness and nausea. Patient appears clinically stable. Associated Symptoms: Reports fever(s) and nausea; Denies dysuria Review of Systems Const: Reports: fever(s); Denies: change in appetite Eyes: Denies: change in vision or eye discharge ENMT: Denies: throat pain, dental pain or nasal discharge Card: Denies: chest pain or lightheadedness GI: Reports: abdominal pain (RLQ) and nausea : Denies: dysuria Musc: Denies: neck pain or back pain Neuro: Reports: dizziness Psych: Denies: depression Mikel/Lymph: Denies: easy bruising All/Imm: Denies: urticaria, tongue swelling or facial swelling PFSH ED PFSH: Medical History Elevated blood pressure reading Schizoaffective disorder, bipolar type Family History Other CAD (coronary artery disease) Cancer Diabetes Family history of premature coronary artery disease Hyperlipidemia Hypertension Psychiatric illness Stroke Suicide Denies family history of Clotting disorder Dementia Chronic kidney disease (CKD) Anesthesia complication Bleeding disorder Lung disease Social History Smoking and tobacco/nicotine status: never used tobacco/nicotine Alcohol intake: current Alcohol intake frequency: few times a week Substance/Drug Use: former Adopted: No Caregiver/support person: Yes Lives independently: Yes Household members: spouse and children Housing: House Marital status: Physical Exam Const: COMMON NORMALS: no acute distress, patient oriented x3, no limitations and alert HENMT: COMMON NORMALS: normocephalic HEAD & SCALP: normocephalic Eye: COMMON NORMALS: EOMs intact bilaterally Neck/C-Spine: COMMON NORMALS: full ROM and supple Chest: COMMONS NORMALS: normal inspection of the chest Resp: COMMON NORMALS: normal respiratory effort, No retractions, No use of accessory muscles and clear to auscultation bilaterally AUSCULTATION: clear to auscultation bilaterally Cardio: COMMON NORMALS: regular rhythm and No murmurs present (Cardio) RATE: tachycardic RHYTHM: regular rhythm GI: COMMON NORMALS: Normal to inspection, nondistended, normoactive bowel sounds present OTHER: Right lower quadrant tenderness. Abdomen is not distended. : COMMON NORMALS: Yes no CVA tenderness BLADDER/KIDNEY EXAM: Yes no CVA tenderness Back/Pelvis: COMMON NORMALS: no CVA tenderness and no thoracic nor lumbar tenderness Extremity: GENERAL: Yes normal exam except as noted Neuro: COMMON NORMALS: patient oriented x3 and no focal motor deficits SENSORIUM/ORIENTATION: Yes alert Psych: COMMON NORMALS: mental status grossly normal and cooperative Course Consultations: Consultation #1: Case discussed with Dr. Sandoval, CERTIFIED PROSTHETIST/ORTHOTIST on-call. I made him aware of the ultrasound findings of a right ovarian cyst with good flow to the ovary and the absence of products of conception in the uterine cavity. We also discussed the fact that patient had fever of 101 but has normal white count with no left shift. She is clinically stable. He recommends starting patient on Lysteda, 2 pills 3 times a day for 5 days. No need to start her on antibiotics right now. Patient should follow-up tomorrow with Dr. Gupta as already scheduled. Vital Signs: Vital signs: Vital Signs Temperature 97.6 F 09/17/23 10:50 Pulse Rate 103 H 09/17/23 10:50 Respiratory Rate 14 09/17/23 10:50 Blood Pressure 176/111 09/17/23 10:50 Pulse Oximetry 99 09/17/23 10:50 Oxygen Delivery Me thod Room Air 09/17/23 10:50 MDM - Abdominal Pain Medical Decision Making Medical decision making: Patient presents with vaginal bleeding that has progressively worsened over the last few days with associated fever and nausea. She had a recent miscarriage. She is scheduled to see her lawyer probate, Dr. Gupta tomorrow. She presents today because she is bleeding clots and she had a fever of 101. Case discussed with Dr. Sandoval, CERTIFIED PROSTHETIST/ORTHOTIST on-call who recommends starting her on Lysteda. He adds that there is no indication for antibiotics right now. Patient should follow-up with Dr. Gupta tomorrow as already scheduled. This was relayed to patient who verbalized understanding and agrees with the plan. Reasons to return were discussed. Lab Data 09/17/23 12:01 09/17/23 12:01 Labs/Radiology: Radiology Impressions Transvaginal US 09/17/23 11:43 IMPRESSION: 1. The endometrium/endometrial canal are mildly heterogeneous and measure 9 mm. Mild heterogeneity may represent hemorrhagic products. 2. The right ovary is enlarged and contains a 4.0 cm septated cyst. Laboratory Results WBC 9.26 10^3/uL (3.29-11.43) 09/17/23 12:01 RBC 4.23 10^6/uL (3.85-5.65) 09/17/23 12:01 Hgb 9.90 g/dL (11.27-16.99) L 09/17/23 12:01 Hct 32.6 % (36-47) L 09/17/23 12:01 MCV 77.1 fl (85-98) L 09/17/23 12:01 MCH 23.4 pg (27-33) L 09/17/23 12:01 MCHC 30.4 g/dL (30-55) 09/17/23 12:01 RDW 16.4 % (12.1-15.1) H 09/17/23 12:01 Plt Count 259 10^3/cmm (157-399) 09/17/23 12:01 MPV 9.1 fL (7.4-10.4) 09/17/23 12:01 Neut % (Auto) 68.4 % 09/17/23 12:01 Lymph % (Auto) 22.6 % 09/17/23 12:01 [place] % (Auto) 6.9 % 09/17/23 12:01 Eos % (Auto) 1.5 % 09/17/23 12:01 Baso % (Auto) 0.3 % 09/17/23 12:01 Neut # (Auto) 6.33 10^3/uL (1.8-7.7) 09/17/23 12:01 Lymph # (Auto) 2.1 10^3/uL (0.8-4.8) 09/17/23 12:01 [place] # (Auto) 0.6 10^3/uL (0.2-0.9) 09/17/23 12:01 Eos # (Auto) 0.1 10^3/uL (0.0-0.8) 09/17/23 12:01 Baso # (Auto) 0.0 10^3/uL (0.0-0.1) 09/17/23 12:01 Nucleated RBC % (auto) 0 % 09/17/23 12:01 Nucleated RBCs # 0.0 /100WBC 09/17/23 12:01 Sodium 137 mmol/L (136-145) 09/17/23 12:01 Potassium 3.9 mmol/L (3.5-5.1) 09/17/23 12:01 Chloride 104 mmol/L (98-107) 09/17/23 12:01 Carbon Dioxide 22 mmol/L (22-29) 09/17/23 12:01 Anion Gap 14.9 (5-19) 09/17/23 12:01 BUN 10 mg/dL (6-20) 09/17/23 12:01 Creatinine 0.5 mg/dL (0.5-0.9) 09/17/23 12:01 GFR Calculation 148.0 mL/min (90-130) H 09/17/23 12:01 Glucose 91 mg/dL (65-115) 09/17/23 12:01 Calculated Osmolality 283 mOsm/kg (285-295) L 09/17/23 12:01 Calcium 9.4 mg/dL (8.5-10.5) 09/17/23 12:01 Total Bilirubin 0.2 mg/dL (0.15-1.2) 09/17/23 12:01 AST 16 U/L (0-32) 09/17/23 12:01 ALT 12 U/L (0-33) 09/17/23 12:01 Alkaline Phosphatase 78 U/L (35-105) 09/17/23 12:01 Total Protein 7.3 g/dL (6.6-8.7) 09/17/23 12:01 Albumin 4.1 g/dL (3.5-5.2) 09/17/23 12:01 Globulin 3.2 g/dL (1.3-4.6) 09/17/23 12:01 Ser , Semi-Qnt 500.90 mIU/mL 09/17/23 12:01 All radiology interpretation(s) finalized by discharge Discharge Plan Discharge Patient Disposition: Home Clinical Impression: Cyst of right ovary, Complete miscarriage Condition: Stable Prescriptions: New tranexamic acid 650 mg tablet 1,300 mg PO TID 5 Days Qty: 30 0RF No Action acetaminophen 500 mg Tablet 500 - 1,000 mg PO Q6H PRN (Reason: Pain) Discharge Orders: Discharge ED (Routine); Ordered 09/17/23 Ordered By: Pietro Negron Discharge Diet: Usual diet Discharge Activity: Resume usual activity Patient Instructions: Opioid Safety, Pain Management Activity Restrictions/Additional Instructions: Follow-up with Dr. Pulliam tomorrow as already scheduled. Take Lysteda as prescribed. You may take [id number] Tylenol or Motrin as needed for pain. Return if you develop any new or worsening symptoms. Coding Level of Care Code ED Contract Clerk for Geremias Maguire
[2023-09-17] MEDS: sodium chloride 0.9% 1,000 ML 999 ML IV (12:29)
[2023-09-17 12:50] LABS: Alanine Aminotransferase 12 U/L (0-33); Albumin Level 4.1 g/dL (3.5-5.2); Alkaline Phosphatase 78 U/L (35-105); Aspartate Amino Transferase 16 U/L (0-32); Blood Urea Nitrogen 10 mg/dL (6-20); Calcium 9.4 mg/dL (8.5-10.5); Carbon Dioxide 22 mmol/L (22-29); Chloride 104 mmol/L (98-107); Globulin 3.2 g/dL (1.3-4.6); Glucose 91 mg/dL (65-115); Osmolality Calculated 283 mOsm/kg (285-295); Sodium 137 mmol/L (136-145); Total Bilirubin 0.2 mg/dL (0.15-1.2); Total Protein 7.3 g/dL (6.6-8.7)
[2023-09-17 12:52] LABS: Anion Gap 14.9 (5-19); Potassium 3.9 mmol/L (3.5-5.1)
== END 2023-09-17 13:48 | disposition home or self-care (01) ==
PROVIDERS: Emergency Provider Family Medicine
DX: O03.9 Complete or unspecified spontaneous abortion without complication (principal); N83.201 Unspecified ovarian cyst, right side
CPT/HCPCS: 76830; 80053; 84702; 85025; 96360; 99284; J7030

== ENCOUNTER → 2023-09-20 10:50 | Outpatient (BNVA) | payer MEDICAID, SELFPAY | PROVIDERS: Visit Provider Obstetrics & Gynecology | DX: O03.9 Complete or unspecified spontaneous abortion without complication (principal); R10.9 Unspecified abdominal pain | CPT/HCPCS: 84443; 84702 ==

== ENCOUNTER → 2023-09-26 07:50 | Outpatient (BNVA) | payer MEDICAID, SELFPAY | PROVIDERS: Visit Provider Obstetrics & Gynecology | DX: O03.9 Complete or unspecified spontaneous abortion without complication (principal) | CPT/HCPCS: 76830 ==

== ENCOUNTER 2024-02-16 15:46 | Outpatient (CLI) | payer MEDICAID, SELFPAY | END 2024-02-16 15:47 | disposition home or self-care (01) | LOC: LAB 15:48 | PROVIDERS: Visit Provider Nurse Practitioner Women's Health | DX: N92.6 Irregular menstruation, unspecified (principal); Z32.01 Encounter for pregnancy test, result positive; R10.9 Unspecified abdominal pain | CPT/HCPCS: 81025; 84702 ==

== ENCOUNTER → 2024-03-20 14:39 | Outpatient (BNVA) | payer MEDICAID, SELFPAY | PROVIDERS: Visit Provider Obstetrics & Gynecology | DX: Z34.90 Encounter for supervision of normal pregnancy, unspecified, unspecified trimester (principal) | CPT/HCPCS: 76801; 80307; 84315; 84443; 85025; 86592; 86762; 86803; 86850; 86900; 87086; 87340; 87491; 87591; 87806 ==

== ENCOUNTER → 2024-04-03 07:55 | Outpatient (BNVA) | payer MEDICAID, SELFPAY | PROVIDERS: Visit Provider Obstetrics & Gynecology | DX: Z34.90 Encounter for supervision of normal pregnancy, unspecified, unspecified trimester (principal); Z01.419 Encounter for gynecological examination (general) (routine) without abnormal findings; R76.8 Other specified abnormal immunological findings in serum | CPT/HCPCS: 84315; 87624 ==

== ENCOUNTER → 2024-04-22 09:00 | Outpatient (BNVA) | payer MEDICAID, SELFPAY | PROVIDERS: Visit Provider Nurse Practitioner Women's Health | DX: R76.8 Other specified abnormal immunological findings in serum (principal); Z34.80 Encounter for supervision of other normal pregnancy, unspecified trimester | CPT/HCPCS: 82105; 84315; 87340 ==

== ENCOUNTER → 2024-05-20 09:29 | Outpatient (BNVA) | payer MEDICAID, SELFPAY | PROVIDERS: Visit Provider Obstetrics & Gynecology | DX: O26.892 Other specified pregnancy related conditions, second trimester (principal); Z3A.20 20 weeks gestation of pregnancy | CPT/HCPCS: 76805 ==

== ENCOUNTER 2024-06-03 12:40 | Outpatient (CLI) | payer MEDICAID, SELFPAY ==
[2024-06-03 12:40] VITALS: BMI 36.3
--- NOTE | 2024-06-03 13:19 | US_ITS ---
WS: [id number] ULTRASOUND OB FOCUSED HISTORY: decreased movement COMPARISON: 05/20/2024 Single intrauterine gestation is identified in variable position. During the end of the examination o f the head is at the lower uterine segment. activity is noted. heart rate at 155 BPM. Cervix is closed. Normal amniotic fluid. US/US OB limited [id number] IMPRESSION: Normal cardiac activity.
--- NOTE | 2024-06-03 13:50 | PC.NURSE ---
This nurse entered the room of pt. This nurse educated the pt that this nurse would assess fht with a doppler, if this nurse could not assess fht with doppler then this nurse with the assistance of an nurse would use a bedside ultrasound to assess fht, then this nurse would call with the assessment. pt verbalized education. This nurse then preceded to assess fht with doppler. no FHT could be assessed, this nurse then exited the room and retrieved the bedside ultrasound and Marylin HENDERSON followed this nurse back to pt bedside. Marylin HENDERSON and the nurse assessed FHT with bedside ultrasound. Once the bedside ultrasound wand was on the abdomen and the visualization of fetus and heart was on the screen, 3 BMP were noted, as this was being observed Shamir HENDERSON entered the room to assist, the fht on the bedside ultrasound then increased to 140 bmp and visualized this occurrence by Shamir HENDERSON , Marylin HENDERSON and this sba underwriter. Then this nurse exited the room and called with the assessment described above. orders received to get OB limited ultrasound @ 1315. This nurse and Gentry with Ultrasound at bedside @ 1335 , pt was then laid back and the e d tech began the assessment. FHT were reported to be unofficially 155 bpm and the cervix was long and thick. This nurse called with the unofficial results of fht 155 and cervix was long thick and closed. @ 1347, orders to discharge home at this time, follow up with regular MANAGER OF OPERATIONS.
[2024-06-03 13:52] VITALS: BP 142/78; PULSE 93
== END 2024-06-03 13:50 | disposition home or self-care (01) ==
LOC: OPOB 12:48 → OBGYN 13:27
PROVIDERS: Visit Provider Obstetrics & Gynecology
DX: O36.8190 Decreased fetal movements, unspecified trimester, not applicable or unspecified (principal); Z3A.00 Weeks of gestation of pregnancy not specified
CPT/HCPCS: 76815; 99211

== ENCOUNTER → 2024-06-18 08:43 | Outpatient (BNVA) | payer MEDICAID, SELFPAY | PROVIDERS: Visit Provider Obstetrics & Gynecology | DX: O26.892 Other specified pregnancy related conditions, second trimester (principal); Z3A.24 24 weeks gestation of pregnancy | CPT/HCPCS: 76816 ==

== ENCOUNTER → 2024-07-08 08:14 | Outpatient (BNVA) | payer MEDICAID, SELFPAY | PROVIDERS: Visit Provider Obstetrics & Gynecology | DX: Z34.80 Encounter for supervision of other normal pregnancy, unspecified trimester (principal) | CPT/HCPCS: 80053; 82950; 84315 ==

== ENCOUNTER 2024-07-12 08:16 | Outpatient (CLI) | payer MEDICAID, SELFPAY ==
[2024-07-12 09:00] LABS: Urine Total Protein 6.5 mg/dL (0-150)
[2024-07-12 09:33] LABS: Total Volume, Urine 2400 mL
[2024-07-12 12:46] VITALS: BP 167/74; PULSE 96; TEMP 35.5
[2024-07-12 13:00] VITALS: BP 190/80; PULSE 125
[2024-07-12 13:16] VITALS: BP 147/84; PULSE 117
[2024-07-12 13:30] VITALS: BP 138/78; PULSE 107
[2024-07-12 13:50] VITALS: BP 138/78; PULSE 107
[2024-07-12 15:04] VITALS: BP 128/80; PULSE 98
== END 2024-07-12 13:50 | disposition home or self-care (01) ==
LOC: LAB 12:01 → OBGYN 12:37
PROVIDERS: PCP Obstetrics & Gynecology; Visit Provider Obstetrics & Gynecology
DX: Z01.89 Encounter for other specified special examinations (principal)
CPT/HCPCS: 84156

== ENCOUNTER 2024-07-12 12:35 | Outpatient (CLI) | payer MEDICAID, SELFPAY ==
[2024-07-12 12:40] VITALS: BMI 37.9
== END 2024-07-12 12:36 | disposition home or self-care (01) ==
PROVIDERS: PCP Obstetrics & Gynecology; Visit Provider Obstetrics & Gynecology
DX: O16.9 Unspecified maternal hypertension, unspecified trimester (principal); Z3A.00 Weeks of gestation of pregnancy not specified; R51.9 Headache, unspecified
CPT/HCPCS: 59025; 99211

== ENCOUNTER 2024-07-15 08:46 | Outpatient (CLI) | payer MEDICAID, SELFPAY ==
[2024-07-15 08:52] VITALS: BMI 38.0
[2024-07-15 09:05] VITALS: TEMP 35.4
[2024-07-15 09:07] VITALS: BP 146/66; PULSE 106
[2024-07-15] MEDS: betamethasone susp 6 mg/mL 1 mL (per mL) 12 MG IM (09:07)
[2024-07-15 09:08] VITALS: RESP 16
[2024-07-15 09:30] VITALS: RESP 16
== END 2024-07-15 09:31 | disposition home or self-care (01) ==
LOC: OPOB 08:46 → OBGYN 08:47
PROVIDERS: PCP Obstetrics & Gynecology; Visit Provider Obstetrics & Gynecology
DX: O26.899 Other specified pregnancy related conditions, unspecified trimester (principal); Z3A.00 Weeks of gestation of pregnancy not specified
CPT/HCPCS: 84315; 96372; 99211; J0702

== ENCOUNTER 2024-07-16 09:17 | Observation (INO) | payer MEDICAID, SELFPAY ==
[2024-07-16] MEDS: betamethasone susp 6 mg/mL 1 mL (per mL) 12 MG IM (09:40)
[2024-07-16 09:45] VITALS: BP 141/78; PULSE 100
[2024-07-16 10:16] VITALS: BP 141/78; PULSE 100
== END 2024-07-16 10:00 | disposition home or self-care (01) ==
PROVIDERS: Admitting Provider Obstetrics & Gynecology; PCP Obstetrics & Gynecology; Visit Provider Obstetrics & Gynecology
DX: O26.899 Other specified pregnancy related conditions, unspecified trimester (principal); Z3A.00 Weeks of gestation of pregnancy not specified
CPT/HCPCS: 96372; 99211; G0378; G0379; J0702

== ENCOUNTER 2024-07-17 16:12 | Outpatient (CLI) | payer MEDICAID, SELFPAY ==
[2024-07-17] VITALS (29 sets, daily range): BP systolic 136–194; BP diastolic 70–100; PULSE 76–127; O2SAT 98–100; BMI 37.9
[2024-07-17] MEDS: acetaminophen 325 mg Tablet 650 MG PO (18:10)
== END 2024-07-17 18:26 | disposition home or self-care (01) ==
LOC: OPOB 16:12 → OBGYN 16:18
PROVIDERS: PCP Obstetrics & Gynecology; Visit Provider Obstetrics & Gynecology
DX: O16.9 Unspecified maternal hypertension, unspecified trimester (principal); Z3A.00 Weeks of gestation of pregnancy not specified
CPT/HCPCS: 59025; 99211

== ENCOUNTER 2024-07-19 15:26 | Outpatient (CLI) | payer MEDICAID, SELFPAY ==
[2024-07-19 15:26] VITALS: BMI 38.4
[2024-07-19 15:36] VITALS: BP 145/65; PULSE 106
[2024-07-19 15:57] VITALS: BP 128/67; PULSE 117
[2024-07-19 16:16] VITALS: BP 127/77; PULSE 114
[2024-07-19 16:36] VITALS: BP 138/83; PULSE 88
[2024-07-19 16:48] VITALS: BP 138/83; PULSE 88; RESP 18
== END 2024-07-19 16:45 | disposition home or self-care (01) ==
LOC: OPOB 15:27 → OBGYN 15:34
PROVIDERS: PCP Obstetrics & Gynecology; Visit Provider Obstetrics & Gynecology
DX: O16.9 Unspecified maternal hypertension, unspecified trimester (principal); Z3A.00 Weeks of gestation of pregnancy not specified
CPT/HCPCS: 59025; 99211

== ENCOUNTER 2024-07-22 12:31 | Outpatient (CLI) | payer MEDICAID, SELFPAY ==
[2024-07-22] VITALS (12 sets, daily range): BP systolic 126–178; BP diastolic 60–100; PULSE 78–136; RESP 16–18
[2024-07-22 13:57] LABS: Bilirubin Urine Negative (Negative); Blood Urine Negative (Negative); Glucose Urine UA Negative (Normal); Ketones Urine Trace (Negative); Leukocyte Esterase Urine Negative (Negative); Nitrate Urine Negative (Negative); Protein Urine Trace (Negative); Specific Gravity, Urine 1.026 (1.005-1.030); Urine Appearance Clear (CLEAR); Urine Color Dark Yellow (Yellow); pH Urine 5.5 (5-7)
[2024-07-22 14:02] LABS: Add Urine Microscopic? YES; Bacteria Urine Trace /hpf; Basophils % 0.1 %; Eosinophils # 0.1 10^3/uL (0.0-0.8); Hematocrit 30.5 % (36-47); Hyaline Casts Urine 1.65 /lpf; Lymphocytes # 2.1 10^3/uL (0.8-4.8); Lymphocytes % 23.1 %; Mean Corpuscular HGB Conc 30.2 g/dL (30-55); Mean Corpuscular Hemoglobin 23.4 pg (27-33); Mean Corpuscular Volume 77.6 fl (85-98); Mean Platelet Volume 9.4 fL (7.4-10.4); Monocytes # 0.6 10^3/uL (0.2-0.9); Monocytes % 6.7 %; Neutrophils # 6.28 10^3/uL (1.8-7.7); Neutrophils % 68.2 %; Nucleated Red Blood Cells % 0 %; Platelet Count 219 10^3/cmm (157-399); Red Blood Count 3.93 10^6/uL (3.85-5.65); Red Cell Distribution Width 16.1 % (12.1-15.1); Squamous Epithelial Cell Urine 0-5 /hpf (0-5); WBC Urine 0-5 /hpf (0-5); White Blood Count 9.21 10^3/uL (3.29-11.43)
[2024-07-22 14:09] LABS: Alanine Aminotransferase 12 U/L (0-33); Albumin Level 3.8 g/dL (3.5-5.2); Alkaline Phosphatase 83 U/L (35-105); Anion Gap 13.9 (5-19); Aspartate Amino Transferase 10 U/L (0-32); Blood Urea Nitrogen 7 mg/dL (6-20); Calcium 8.7 mg/dL (8.5-10.5); Carbon Dioxide 21 mmol/L (22-29); Chloride 104 mmol/L (98-107); Glomerular Filtration Rate 190.1 mL/min (90-130); Glucose 109 mg/dL (65-115); Osmolality Calculated 279 mOsm/kg (285-295); Potassium 3.9 mmol/L (3.5-5.1); Sodium 135 mmol/L (136-145); Total Bilirubin 0.2 mg/dL (0.15-1.2); Total Protein 6.8 g/dL (6.6-8.7); Uric Acid 2.9 mg/dL (2.4-5.7)
[2024-07-22 14:14] LABS: Urine Creatinine 219 mg/dL (28-217); Urine Protein Random 22 mg/dL
[2024-07-22 14:17] LABS: UA Slide Review UA Slide Review Perf
[2024-07-22 14:18] LABS: Add Urine Culture? No; Sperm Urine 2+ /hpf; Uric Acid Crystals Urine 25-40 /hpf
== END 2024-07-22 15:08 ==
LOC: OPOB 12:32 → OBGYN 12:33
PROVIDERS: PCP Obstetrics & Gynecology; Visit Provider Obstetrics & Gynecology
DX: O16.9 Unspecified maternal hypertension, unspecified trimester (principal); Z3A.00 Weeks of gestation of pregnancy not specified
CPT/HCPCS: 36415; 59025; 80053; 81001; 82570; 84156; 84550; 85025

== ENCOUNTER 2024-08-12 09:20 | Outpatient (CLI) | payer MEDICAID, SELFPAY ==
[2024-08-12] VITALS (10 sets, daily range): BP systolic 115–165; BP diastolic 56–90; PULSE 82–113; BMI 37.8
--- NOTE | 2024-08-12 09:41 | USR_ITS ---
PROCEDURE INFORMATION: Exam: US Biophysical Profile Without Non-Stress Test Exam date and time: 08/12/2024 10:31 AM Age: 29 years old Clinical indication: Other: Gestational hypertension; TECHNIQUE: Imaging protocol: US biophysical profile without non-stress testing. COMPARISON: [place] [id number] 06/18/2024 8:52 AM FINDINGS: Gestation: Single intrauterine gestation in breech position. heart rate: 157 bpm Placenta: Placenta appears mostly anterior. No placenta previa demonstrated. Amniotic fluid index: ANA ROSA is 10.27 cm. BIOPHYSICAL PROFILE: breathing (BPP): 2 /2 gross body movement (BPP): 2 /2 tone (BPP): 2 /2 Amniotic fluid (BPP): 2 /2 Biophysical profile score (BPP): 8 /8. MATERNAL ANATOMY: Cervix: Cervical length measured at 4.1 cm. US/US OB BPP wo NST [id number] IMPRESSION: biophysical profile score 8 /8 .
[2024-08-12 09:58] LABS: Basophils % 0.2 %; Eosinophils # 0.1 10^3/uL (0.0-0.8); Eosinophils % 1.9 %; Hematocrit 30.7 % (36-47); Lymphocytes # 1.2 10^3/uL (0.8-4.8); Lymphocytes % 21.8 %; Mean Corpuscular HGB Conc 31.6 g/dL (30-55); Mean Corpuscular Hemoglobin 25.9 pg (27-33); Mean Corpuscular Volume 82.1 fl (85-98); Mean Platelet Volume 9.2 fL (7.4-10.4); Monocytes # 0.4 10^3/uL (0.2-0.9); Monocytes % 6.5 %; Neutrophils % 69.1 %; Nucleated Red Blood Cells % 0 %; Platelet Count 161 10^3/cmm (157-399); Red Blood Count 3.74 10^6/uL (3.85-5.65); Red Cell Distribution Width 21.5 % (12.1-15.1); White Blood Count 5.65 10^3/uL (3.29-11.43)
[2024-08-12 10:19] LABS: Alanine Aminotransferase 9 U/L (0-33); Albumin Level 3.6 g/dL (3.5-5.2); Alkaline Phosphatase 74 U/L (35-105); Blood Urea Nitrogen 7 mg/dL (6-20); Calcium 8.5 mg/dL (8.5-10.5); Carbon Dioxide 18 mmol/L (22-29); Chloride 102 mmol/L (98-107); Creatinine Clr Calc Pharmacy 240.4329; Globulin 2.7 g/dL (1.3-4.6); Glomerular Filtration Rate 190.1 mL/min (90-130); Glucose 123 mg/dL (65-115); Osmolality Calculated 271 mOsm/kg (285-295); Sodium 131 mmol/L (136-145); Total Bilirubin 0.2 mg/dL (0.15-1.2); Total Protein 6.3 g/dL (6.6-8.7)
[2024-08-12 10:22] LABS: Anion Gap 14.7 (5-19); Aspartate Amino Transferase 17 U/L (0-32); Potassium 3.7 mmol/L (3.5-5.1)
== END 2024-08-12 12:00 ==
LOC: OPOB 09:25 → OBGYN 09:25
PROVIDERS: PCP Obstetrics & Gynecology; Visit Provider Obstetrics & Gynecology
DX: O16.9 Unspecified maternal hypertension, unspecified trimester (principal); Z3A.00 Weeks of gestation of pregnancy not specified
CPT/HCPCS: 36415; 59025; 76819; 80053; 84315; 85025; 99211

== ENCOUNTER 2024-08-13 12:17 | Outpatient (CLI) | payer MEDICAID, SELFPAY | END 2024-08-13 12:18 | disposition home or self-care (01) | LOC: LAB 12:19 | PROVIDERS: PCP Obstetrics & Gynecology; Visit Provider Obstetrics & Gynecology | DX: Z01.89 Encounter for other specified special examinations (principal) | CPT/HCPCS: 82570; 84166; 86335 ==

== ENCOUNTER 2024-08-15 11:11 | Outpatient (CLI) | payer MEDICAID, SELFPAY ==
[2024-08-15 11:20] VITALS: BP 157/73; PULSE 95
[2024-08-15 11:24] VITALS: BMI 39.4
[2024-08-15 11:37] VITALS: BP 139/86; PULSE 120
[2024-08-15 11:53] VITALS: BP 129/73; PULSE 117
[2024-08-15 12:09] VITALS: BP 129/73; PULSE 117; RESP 18
== END 2024-08-15 12:10 | disposition home or self-care (01) ==
LOC: OPOB 11:11 → OBGYN 11:12
PROVIDERS: PCP Obstetrics & Gynecology; Visit Provider Obstetrics & Gynecology
DX: O16.9 Unspecified maternal hypertension, unspecified trimester (principal); Z3A.00 Weeks of gestation of pregnancy not specified
CPT/HCPCS: 59025; 99211

== ENCOUNTER 2024-08-19 09:49 | Outpatient (CLI) | payer MEDICAID, SELFPAY ==
[2024-08-19 09:58] VITALS: BP 162/80; PULSE 104; TEMP 35.4
[2024-08-19 10:01] VITALS: RESP 18
[2024-08-19 10:11] VITALS: BP 153/71; PULSE 116
[2024-08-19 10:42] VITALS: BP 136/95; PULSE 112
[2024-08-19 11:02] VITALS: BP 182/84; PULSE 117
[2024-08-19 11:21] VITALS: BP 149/85; PULSE 123
== END 2024-08-19 11:35 | disposition home or self-care (01) ==
LOC: OPOB 09:51 → OBGYN 09:52
PROVIDERS: PCP Obstetrics & Gynecology; Visit Provider Obstetrics & Gynecology
DX: O16.9 Unspecified maternal hypertension, unspecified trimester (principal); Z3A.00 Weeks of gestation of pregnancy not specified
CPT/HCPCS: 59025; 84315

== ENCOUNTER 2024-08-22 11:09 | Outpatient (CLI) | payer MEDICAID, SELFPAY ==
[2024-08-22 11:05] VITALS: BMI 39.5
[2024-08-22 11:23] VITALS: BP 174/84; PULSE 113
[2024-08-22 11:41] VITALS: BP 142/89; PULSE 122
[2024-08-22 11:59] VITALS: BP 163/75; PULSE 96
[2024-08-22 12:11] VITALS: BP 185/88; PULSE 120
[2024-08-22 12:15] VITALS: BP 163/75; PULSE 96; O2SAT 98
== END 2024-08-22 13:05 | disposition home or self-care (01) ==
LOC: OPOB 11:09 → OBGYN 11:10
PROVIDERS: PCP Obstetrics & Gynecology; Visit Provider Obstetrics & Gynecology
DX: O16.9 Unspecified maternal hypertension, unspecified trimester (principal); Z3A.00 Weeks of gestation of pregnancy not specified
CPT/HCPCS: 59025

== ENCOUNTER 2024-08-26 10:01 | Outpatient (CLI) | payer MEDICAID, SELFPAY ==
[2024-08-26] VITALS (26 sets, daily range): BP systolic 109–191; BP diastolic 55–104; PULSE 84–141; O2SAT 100; BMI 39.8
[2024-08-26] MEDS: acetaminophen 325 mg Tablet 650 MG PO (11:46)
--- NOTE | 2024-08-26 15:01 | PC.NURSE ---
Call made to Alejo at [facility] requesting the need for transport of this patient to [facility] in [place], [place]. Reports back that a truck just arrived back into town from a transfer and that he was going to let them eat dinner and then send them this way.
--- NOTE | 2024-08-26 17:13 | PC.NURSE ---
Call to Alejo at [facility] ambulance for an update on transport time. Reported that it would be another 30-40min and the truck would be here.
== END 2024-08-26 18:30 | disposition home or self-care (01) ==
LOC: OPOB 10:02 → OBGYN 10:11
PROVIDERS: PCP Obstetrics & Gynecology; Visit Provider Obstetrics & Gynecology
DX: O16.9 Unspecified maternal hypertension, unspecified trimester (principal); Z3A.00 Weeks of gestation of pregnancy not specified
CPT/HCPCS: 59025; 84315

== ENCOUNTER 2024-08-30 12:20 | Outpatient (CLI) | payer MEDICAID, SELFPAY ==
[2024-08-30] VITALS (9 sets, daily range): BP systolic 142–186; BP diastolic 66–101; PULSE 115–141; RESP 18; O2SAT 99; BMI 39.6
[2024-08-30 13:41] LABS: Basophils % 0.1 %; Eosinophils % 0.5 %; Hematocrit 33.2 % (36-47); Lymphocytes % 25.5 %; Mean Corpuscular HGB Conc 32.2 g/dL (30-55); Mean Corpuscular Hemoglobin 27.2 pg (27-33); Mean Corpuscular Volume 84.5 fl (85-98); Mean Platelet Volume 9.3 fL (7.4-10.4); Monocytes # 0.7 10^3/uL (0.2-0.9); Monocytes % 8.6 %; Neutrophils # 5.02 10^3/uL (1.8-7.7); Neutrophils % 64.2 %; Nucleated Red Blood Cells % 0 %; Platelet Count 174 10^3/cmm (157-399); Red Blood Count 3.93 10^6/uL (3.85-5.65); Red Cell Distribution Width 21.2 % (12.1-15.1); White Blood Count 7.83 10^3/uL (3.29-11.43)
[2024-08-30 13:47] LABS: Bacteria Urine 1+ /hpf; RBC Urine 0-2 /hpf (0-2); WBC Urine 0-5 /hpf (0-5)
[2024-08-30 14:00] LABS: Urine Creatinine 43 mg/dL (28-217); Urine Protein Random 7 mg/dL
[2024-08-30 14:01] LABS: Alanine Aminotransferase 9 U/L (0-33); Albumin Level 3.9 g/dL (3.5-5.2); Alkaline Phosphatase 76 U/L (35-105); Anion Gap 16.5 (5-19); Aspartate Amino Transferase 9 U/L (0-32); Blood Urea Nitrogen 6 mg/dL (6-20); Calcium 8.8 mg/dL (8.5-10.5); Carbon Dioxide 19 mmol/L (22-29); Chloride 102 mmol/L (98-107); Globulin 2.5 g/dL (1.3-4.6); Glomerular Filtration Rate 190.1 mL/min (90-130); Glucose 98 mg/dL (65-115); Osmolality Calculated 276 mOsm/kg (285-295); Potassium 3.5 mmol/L (3.5-5.1); Sodium 134 mmol/L (136-145); Total Bilirubin 0.2 mg/dL (0.15-1.2); Total Protein 6.4 g/dL (6.6-8.7); Uric Acid 3.2 mg/dL (2.4-5.7)
[2024-08-30 14:08] LABS: UPRO/UCREAT Ratio 0.16 mg/mg CR
[2024-08-30 14:32] LABS: Add Urine Culture? No; Add Urine Microscopic? YES; Bilirubin Urine Neg (Negative); Blood Urine Neg (Negative); Glucose Urine UA Norm (Normal); Ketones Urine Negative (Negative); Leukocyte Esterase Urine Trace (Negative); Nitrate Urine Negative (Negative); Protein Urine Neg (Negative); Urine Appearance Clear (CLEAR); Urine Color Yellow (Yellow); Urobilinogen Urine Norm (Negative); pH Urine 6.5 (5-7)
== END 2024-08-30 14:20 | disposition home or self-care (01) ==
LOC: OPOB 12:20 → OBGYN 12:21
PROVIDERS: Obstetrics & Gynecology; PCP Obstetrics & Gynecology; Visit Provider Obstetrics & Gynecology
DX: O16.9 Unspecified maternal hypertension, unspecified trimester (principal); Z3A.00 Weeks of gestation of pregnancy not specified
CPT/HCPCS: 36415; 59025; 80053; 81001; 82570; 84156; 84550; 85025; 99211

== ENCOUNTER 2024-09-02 11:57 | Outpatient (CLI) | payer MEDICAID, SELFPAY ==
[2024-09-02] VITALS (10 sets, daily range): BP systolic 110–169; BP diastolic 59–94; PULSE 80–123; O2SAT 100; BMI 39.4
--- NOTE | 2024-09-02 12:58 | USR_ITS ---
PROCEDURE INFORMATION: Exam: US Biophysical Profile Without Non-Stress Test Exam date and time: 09/02/2024 1:54 PM Age: 29 years old Clinical indication: Condition or disease; Other: Gestational hypertension; ; Additional info: Ghnt TECHNIQUE: Imaging protocol: US biophysical profile without non-stress testing. COMPARISON: US OB BPP NST [id number] 08/12/2024 10:31 AM FINDINGS: heart rate: 145 bpm Amniotic fluid index: ANA ROSA is 13.25 cm. Presentation: Cephalic BIOPHYSICAL PROFILE: breathing (BPP): 2 /2 gross body movement (BPP): 2 /2 tone (BPP): 2 /2 Amniotic fluid (BPP): 2 /2 Biophysical profile score (BPP): 8 /8 MATERNAL ANATOMY: Cervix: Cervical length measures 4.5 cm. US/US OB BPP NST 53522 IMPRESSION: Biophysical profile score is 8 out of 8.
[2024-09-02 13:20] LABS: Hematocrit 34.9 % (36-47); Mean Corpuscular HGB Conc 32.4 g/dL (30-55); Mean Corpuscular Hemoglobin 27.2 pg (27-33); Mean Corpuscular Volume 83.9 fl (85-98); Mean Platelet Volume 9.3 fL (7.4-10.4); Platelet Count 169 10^3/cmm (157-399); Red Blood Count 4.16 10^6/uL (3.85-5.65); Red Cell Distribution Width 21.1 % (12.1-15.1); White Blood Count 8.17 10^3/uL (3.29-11.43)
[2024-09-02 13:36] LABS: Alanine Aminotransferase 7 U/L (0-33); Albumin Level 3.8 g/dL (3.5-5.2); Alkaline Phosphatase 74 U/L (35-105); Aspartate Amino Transferase 7 U/L (0-32); Blood Urea Nitrogen 6 mg/dL (6-20); Calcium 8.9 mg/dL (8.5-10.5); Carbon Dioxide 20 mmol/L (22-29); Chloride 102 mmol/L (98-107); Creatinine Clr Calc Pharmacy 246.4305; Globulin 2.7 g/dL (1.3-4.6); Glomerular Filtration Rate 190.1 mL/min (90-130); Glucose 78 mg/dL (65-115); Osmolality Calculated 274 mOsm/kg (285-295); Sodium 134 mmol/L (136-145); Total Bilirubin 0.2 mg/dL (0.15-1.2); Total Protein 6.5 g/dL (6.6-8.7)
[2024-09-02 14:01] LABS: Absolute Eosinophils 0.1 10^3/cmm (0.0-0.7); Absolute Segmented Neutrophil 5.6 10/cmm (1.6-7.1); Band Neutrophils Absolute 0.3 10^3/cmm (0.0-1.2); Eosinophils 1 %; Lymphocytes 18 %; Monocytes Absolute 0.7 10^3/cmm (0.1-0.6); Segmented Neutrophils 69 %; Total Cells Counted 100 (0-100)
[2024-09-02 14:02] LABS: Lymphocytes Absolute 1.5 10^3/cmm (1.2-3.4); Platelet Estimate Normal (Normal)
[2024-09-02 14:24] LABS: Uric Acid 3.8 mg/dL (2.4-5.7)
--- NOTE | 2024-09-02 14:27 | PC.NURSE ---
THIS RN NOTIFIED DR. VALLECILLO OF LAB RESULTS.
== END 2024-09-02 14:15 ==
LOC: OPOB 11:57 → OBGYN 11:58
PROVIDERS: Obstetrics & Gynecology; PCP Obstetrics & Gynecology; Visit Provider Obstetrics & Gynecology
DX: O16.9 Unspecified maternal hypertension, unspecified trimester (principal); Z3A.00 Weeks of gestation of pregnancy not specified
CPT/HCPCS: 36415; 59025; 76819; 80053; 84550; 85007; 85027; 99211

== ENCOUNTER → 2024-09-03 08:28 | Outpatient (BNVA) | payer MEDICAID, SELFPAY | PROVIDERS: PCP Obstetrics & Gynecology; Visit Provider Obstetrics & Gynecology | DX: O26.893 Other specified pregnancy related conditions, third trimester (principal); Z3A.36 36 weeks gestation of pregnancy | CPT/HCPCS: 76816; 76819 ==

== ENCOUNTER 2024-09-03 10:34 | Outpatient (CLI) | payer MEDICAID, SELFPAY ==
[2024-09-03 10:34] VITALS: BMI 39.4
[2024-09-03 10:48] VITALS: BP 183/87; PULSE 117
[2024-09-03 11:04] VITALS: BP 140/92; PULSE 130
[2024-09-03 11:18] VITALS: BP 147/89; PULSE 122
[2024-09-03 11:33] VITALS: BP 123/86; PULSE 90
--- NOTE | 2024-09-03 11:45 | P.TNLD_ITS ---
OB L&D Triage Visit Information: Date of evaluation: 09/03/24 Comments/Additional reason(s) for visit: 29-year-old female G6, P3 at 35.2 weeks gestation was seen in labor and delivery triage after biophysical profile 05/30 and NST category 1, on labor and delivery. Patient has history of gestational hypertension currently on labetalol and Procardia. Patient admits to good movement, denies pelvic pain or vaginal bleeding. Ultrasound results of hydronephrosis reviewed with Dr. Gupta as well as patient's serial blood pressures. Plan is for scheduled at 37 weeks gestation unless otherwise indicated. Evaluation: Baseline heart rate: 140 Variability: Moderate (11-25) monitor accelerations: Present 15x15 monitor decelerations: None Vital signs: Vital Signs - 24 hr 09/03/24 10:48 09/03/24 11:04 09/03/24 11:18 Pulse Rate 117 H 130 H 122 H Blood Pressure 183/87 140/92 147/89 09/03/24 11:33 Pulse Rate 90 Blood Pressure 123/86 Care AKIRA Calculator Estimated Delivery Date Method Current WG Current Estimate 10/06/24 Ultrasound #1 35w 2d Specific Issues/Plans * SUPERVISION OF * HX OF GESTATIONAL HTN X3: taking baby aspirin daily, takes 30 mg procardia XL , labetalol 100 mgTID * CHRONIC HTN: taking procardia 30 mg XL daily, labetalol 100 mg TID * ANEMIA: 02/2024, hgb 10.3 * HYDRONEPHROSIS: hydronephrosis on ultrasound 06/18/24, patient states that she was seen by MFM for this, MFM called and she has not been seen in clinic but may have been seen in the hospital, they are working on a note Final Diagnosis Final Diagnosis (1) 35 weeks gestation of : Status: Acute Code(s): Z3A.35 - 35 weeks gestation of (2) hydronephrosis: Status: Acute (3) History of gestational hypertension: Status: Acute Code(s): Z87.59 - Personal history of other complications of , childbirth and the puerperium (4) Anemia: Status: Acute Code(s): D64.9 - Anemia, unspecified Coding Level of Care Code Acute Code for Chg Fwd Diagnoses 35 weeks gestation of Z3A.35 hydronephrosis History of gestational hypertension Z87.59 Anemia D64.9
[2024-09-03 12:17] VITALS: BP 123/86; PULSE 86; RESP 16; O2SAT 98
== END 2024-09-03 12:17 | disposition home or self-care (01) ==
LOC: OPOB 10:40 → OBGYN 10:42
PROVIDERS: PCP Obstetrics & Gynecology; Visit Provider Obstetrics & Gynecology
DX: O99.891 Other specified diseases and conditions complicating pregnancy (principal); N13.30 Unspecified hydronephrosis; Z3A.35 35 weeks gestation of pregnancy; Z87.59 Personal history of other complications of pregnancy, childbirth and the puerperium; D64.9 Anemia, unspecified
CPT/HCPCS: 59025; 99211

== ENCOUNTER 2024-09-05 12:30 | Outpatient (CLI) | payer MEDICAID, SELFPAY ==
[2024-09-05] VITALS (7 sets, daily range): BP systolic 144–228; BP diastolic 84–116; PULSE 108–134; BMI 39.6
[2024-09-05 13:33] LABS: Basophils % 0.1 %; Eosinophils # 0.1 10^3/uL (0.0-0.8); Eosinophils % 0.7 %; Hematocrit 35.5 % (36-47); Lymphocytes # 1.8 10^3/uL (0.8-4.8); Lymphocytes % 25.8 %; Mean Corpuscular HGB Conc 32.7 g/dL (30-55); Mean Corpuscular Hemoglobin 27.5 pg (27-33); Mean Corpuscular Volume 84.1 fl (85-98); Mean Platelet Volume 9.6 fL (7.4-10.4); Monocytes # 0.6 10^3/uL (0.2-0.9); Monocytes % 8.2 %; Neutrophils # 4.39 10^3/uL (1.8-7.7); Neutrophils % 64.6 %; Nucleated Red Blood Cells % 0 %; Platelet Count 155 10^3/cmm (157-399); Red Blood Count 4.22 10^6/uL (3.85-5.65); Red Cell Distribution Width 20.8 % (12.1-15.1); White Blood Count 6.81 10^3/uL (3.29-11.43)
[2024-09-05 13:52] LABS: Alanine Aminotransferase 8 U/L (0-33); Albumin Level 4.1 g/dL (3.5-5.2); Alkaline Phosphatase 92 U/L (35-105); Aspartate Amino Transferase 11 U/L (0-32); Blood Urea Nitrogen 7 mg/dL (6-20); Calcium 8.7 mg/dL (8.5-10.5); Carbon Dioxide 21 mmol/L (22-29); Chloride 103 mmol/L (98-107); Creatinine Clr Calc Pharmacy 247.0308; Globulin 2.7 g/dL (1.3-4.6); Glomerular Filtration Rate 190.1 mL/min (90-130); Glucose 81 mg/dL (65-115); Osmolality Calculated 277 mOsm/kg (285-295); Sodium 135 mmol/L (136-145); Total Bilirubin 0.2 mg/dL (0.15-1.2); Total Protein 6.8 g/dL (6.6-8.7)
[2024-09-05 14:06] LABS: Bilirubin Urine Negative (Negative); Blood Urine Negative (Negative); Glucose Urine UA Negative (Normal); Ketones Urine Negative (Negative); Leukocyte Esterase Urine 1+ (Negative); Nitrate Urine Negative (Negative); Protein Urine Negative (Negative); Specific Gravity, Urine 1.008 (1.005-1.030); Urine Appearance Clear (CLEAR); Urine Color Yellow (Yellow); Urobilinogen Urine 0.2 mg/dL (Negative)
[2024-09-05 14:12] LABS: Add Urine Microscopic? YES; Bacteria Urine Trace /hpf; RBC Urine 0-2 /hpf (0-2)
[2024-09-05 14:23] LABS: Urine Creatinine 49 mg/dL (28-217); Urine Protein Random 5 mg/dL
== END 2024-09-05 14:30 | disposition home or self-care (01) ==
LOC: OPOB 12:32 → OBGYN 12:33
PROVIDERS: PCP Obstetrics & Gynecology; Visit Provider Obstetrics & Gynecology
DX: O16.9 Unspecified maternal hypertension, unspecified trimester (principal); Z3A.00 Weeks of gestation of pregnancy not specified
CPT/HCPCS: 36415; 59025; 80053; 81001; 82570; 84156; 84315; 84550; 85025; 99211

== ENCOUNTER 2024-09-05 19:01 | Inpatient (IN) | payer MEDICAID, SELFPAY ==
[2024-09-05] VITALS (18 sets, daily range): BP systolic 118–191; BP diastolic 60–98; PULSE 93–141; BMI 39.6
--- NOTE | 2024-09-05 19:06 | USR_ITS ---
PROCEDURE INFORMATION: Exam: US Biophysical Profile Without Non-Stress Test Exam date and time: 09/05/2024 6:58 PM Age: 29 years old Clinical indication: Other: Severely elevated BP; ; Additional info: Severe elevated BP TECHNIQUE: Imaging protocol: US biophysical profile without non-stress testing. COMPARISON: US OB F/U w BPP wo NST 09/03/2024 8:35 AM FINDINGS: heart rate: 136 bpm presentation and position: Cephalic Placenta: Anterior grade 2 placenta without previa. Amniotic fluid (Qualitative): Amniotic fluid volume is normal. Amniotic fluid index: ANA ROSA is 14 cm. BIOPHYSICAL PROFILE: breathing (BPP): 2 /2 gross body movement (BPP): 2 /2 tone (BPP): 2 /2 Amniotic fluid (BPP): 2 /2 Biophysical profile score (BPP): 8 /8 MATERNAL ANATOMY: Cervix: Cervical length measures 5.2 cm. US/US OB BPP wo NST [id number] IMPRESSION: Biophysical profile score is 8 out of 8.
[2024-09-05] MEDS: acetaminophen 325 mg Tablet 650 MG PO (19:57)
[2024-09-05] MEDS: labetalol 5 mg/mL SDV 20mL 20 MG IVP (20:27)
[2024-09-06] VITALS (46 sets, daily range): BP systolic 106–177; BP diastolic 56–99; PULSE 68–139; RESP 17
[2024-09-06] MEDS: acetaminophen 325 mg Tablet 650 MG PO (12:24)
[2024-09-06] MEDS: labetalol 5 mg/mL SDV 20mL 20 MG IVP (12:24)
--- NOTE | 2024-09-06 17:29 | ECG_ITS ---
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 Measurements Intervals [place] Rate: 70 P: 39 SD: 141 QRS: 54 QRSD: 94 T: 29 QT: 384 QTc: 416 Interpretive Statements SINUS RHYTHM WITH SINUS ARRHYTHMIA POSSIBLE LEFT ATRIAL ENLARGEMENT [-0.1mV P-WAVE IN V1/V2] MODERATE T-WAVE ABNORMALITY, CONSIDER ANTEROLATERAL ISCHEMIA [-0.1+ mV T-WAVE IN V3-V6] Compared to ECG 03/27/2022 15:59:18 Possible ischemia now present T-wave abnormality still present Electronically Signed On 09-06-2024 22:35:52 SPOOLER OPERATOR by Nano Gonzáles M.D. [email or web address]
--- NOTE | 2024-09-06 18:06 | PM.OPHPUD ---
Labor & Delivery H&P Update Date of Procedure: September 06, 2024 Date H&P Performed: 09/05/24 H&P update information: I have reviewed H&P completed within last 30 days, I have examined patient prior to procedure and Changes to prior documentation as noted here (uncontrolled gestational hypertension) Admission Diagnosis:
[2024-09-06] MEDS: hyDROXYzine 25 mg Capsule 50 MG PO (21:44)
[2024-09-07] VITALS (14 sets, daily range): BP systolic 113–181; BP diastolic 53–86; PULSE 65–106; RESP 16; TEMP 36.8; BMI 39.6
[2024-09-07 05:16] LABS: Basophils % 0.4 %; Eosinophils # 0.1 10^3/uL (0.0-0.8); Eosinophils % 1.1 %; Hematocrit 34.8 % (36-47); Lymphocytes # 2.3 10^3/uL (0.8-4.8); Lymphocytes % 28.8 %; Mean Corpuscular HGB Conc 32.5 g/dL (30-55); Mean Corpuscular Hemoglobin 27.8 pg (27-33); Mean Corpuscular Volume 85.7 fl (85-98); Mean Platelet Volume 9.4 fL (7.4-10.4); Monocytes # 0.5 10^3/uL (0.2-0.9); Monocytes % 6.3 %; Neutrophils # 5.07 10^3/uL (1.8-7.7); Neutrophils % 62.7 %; Nucleated Red Blood Cells % 0 %; Platelet Count 150 10^3/cmm (157-399); Red Blood Count 4.06 10^6/uL (3.85-5.65); Red Cell Distribution Width 20.5 % (12.1-15.1); White Blood Count 8.09 10^3/uL (3.29-11.43)
[2024-09-07] MEDS: miSOPROStol 100 mcg tablet 25 MCG VAGINAL ×4 (06:16→18:40)
[2024-09-07] MEDS: ampicillin 1,000 MG in sodium chloride 0.9% (plus) 50 ML 100 MG IV ×3 (10:29→18:44)
[2024-09-07] MEDS: dextrose 5%-lactated ringers 1,000 ML 125 ML IV (10:29)
--- NOTE | 2024-09-07 12:04 | P.PN_ITS ---
Subjective 2 Subjective: Mookie 29-year-old female with an estimated gestational age at 36 weeks with uncontrolled hypertension, Vitals/I&O/Wt Last Vital Signs Pulse 101 H 09/07/24 11:03 Resp 17 09/06/24 18:00 BP 148/74 09/07/24 11:03 O2 Del Method Room Air 09/07/24 06:42 09/06/24 09/07/24 09/07/24 22:59 06:59 14:59 Intake Total 500 / 1240 Balance 500 / 1240 Weight last 48 hrs Weight 104.78 kg Weight 104.78 kg Physical Exam 2 Narrative: GA: Alert and oriented ?3. Lungs: Clear to auscultation bilaterally. Heart: Regular rhythm and rate. Abdomen: Gravid, full the height equals dates, nontender. LADLE CLEANER: SVE; dilation: 1 cm, effacement: 0%, station: -4, presentation: vx, membranes: im. Extremities: no edema, no cyanosis, no calves pain. heart tracing: Basal rate: 140's bpm, Variability: moderate, Accelerations: present, Decelerations: absent, Contraction: irregular. Data 09/10/24 01:53 A&P Assessment and plan (1) Gestational hypertension: Mrs. Streeter 29-year-old female with an estimated gestational age at 36 weeks, with a history of gestational hypertension, has been to labor and delivery several times with elevated hypertension preeclampsia workup labs within normal limits. She was transferred to [place] for elevated blood pressures but later released 3 days after. She had continue with uncontrolled hypertension despite medication change. After release from [place] she had an episode of syncope with severe blood pressure and a head contusion. Was admitted for observation showing severe hypertension. Patient was counseled regarding induction and the off label use of misoprostol for cervical ripening. Qualifiers: Trimester: third trimester Qualified Code(s): O13.3 - Gestational [-induced] hypertension without significant proteinuria, third trimester Plan Induction Attestations 2 Medical Necessity Statement*: In my professional opinion per admitting diagnosis Coding Level of Care Code Acute Code for Chg Fwd Diagnoses Gestational hypertension, third trimester O13.3 Trimester: third trimester
--- NOTE | 2024-09-07 18:40 | P.ANESASSM_ITS ---
Pre-Anesthetic Assessment Height/Weight: Height 1.63 m Weight 104.78 kg Temp Pulse Resp BP O2 Del Method 98.2 F 71 16 133/77 Room Air 09/07/24 14:00 09/07/24 15:53 09/07/24 18:00 09/07/24 15:53 09/07/24 06:42 Familial anesthetic complications: None Was Beta Jean Carlos taken within 24 hours: N/A (Labetalol IV yesterday morning) Was Clonidine taken within 24 hours: N/A Last intake: Solids: 1700 Social No alcohol and No tobacco Exam alert, oriented x 3, clear to auscultation bilaterally and regular rate & rhythm Airway Submandibular: within normal limits Cervical ROM: within normal limits Mallampati: Class III Dentition: full History/ROS No significant history except as noted and No significant complaints Pulmonary None reported CV/HEM Anemia (Iron transfusion 7 weeks ago, bruises easy), Arrythmia and Hypertension (Gestational) None reported Hepatic None reported GI Gastroesophageal Reflux Disease Metabolic Morbid Obesity [facility] [place] None reported Neuropsych Seizure (Once at age 13, none since) Anesthetic Plan ASA status: 3 Anesthesia: Anesthesia Evaluation, General, MAC and Regional (specify below) (Epidural) Medications/Allergies Home Medications Medication Instructions Recorded Confirmed Last Taken Type acetaminophen 500 mg tablet 500 - 1,000 mg PO Q6H PRN Pain 09/12/23 09/05/24 09/05/24 02:00 History multivitamin 1 tab PO DAILY 03/20/24 09/05/24 09/05/24 07:30 History aspirin 81 mg capsule 81 mg PO DAILY 07/17/24 09/05/24 09/05/24 07:30 History nifedipine 30 mg tablet,extended 30 mg PO BID #60 tabs 08/12/24 09/05/24 09/02/24 07:00 Rx release 24 hr (Procardia XL) labetalol 100 mg tablet 100 mg PO TID 08/26/24 09/05/24 09/02/24 07:00 History diltiazem HCl 120 mg 120 mg PO DAILY #30 caps 08/28/24 09/05/24 09/05/24 07:30 Rx capsule,extended release 24 hr (Cardizem CD) ferrous sulfate 27 mg iron tablet 27 mg PO DAILY 08/28/24 09/05/24 09/05/24 07:30 History Allergies Allergy/AdvReac Type Severity Reaction Status Date / Time No Known Allergies Allergy Verified 09/05/24 15:09 Current Medications Generic Name Dose Route Start Last Admin Trade Name Lam PRN Reason Stop Dose Admin Acetaminophen 650 mg 09/05/24 17:59 09/06/24 12:24 Acetaminophen 325 Mg Tablet PO 650 mg Q6H PRN Administration Mild pain or temp > 100.4 Hydroxyzine Pamoate 50 mg 09/05/24 17:59 09/06/24 21:44 Hydroxyzine 25 Mg Capsule PO 50 mg QID PRN Administration sleep, agitation or itching Dextrose/Lactated Ringer's 1,000 mls @ 125 mls/hr 09/07/24 04:20 09/07/24 10:29 Dextrose 5%-Lactated Ringers IV 125 mls/hr .Q8H PRN Administration per label comments Ampicillin Sodium 1,000 mg/ 50 mls @ 100 mls/hr 09/07/24 11:00 09/07/24 14:20 Sodium Chloride IV 100 mls/hr Q4H PAUL Administration Protocol Labetalol HCl 20 mg 09/05/24 17:59 09/06/24 12:24 Labetalol 5 Mg/Ml Sdv 20ml IVP 20 mg PRN PRN Administration HYPERTENSION Protocol PFSH Anesthesia Medical History Schizoaffective disorder, bipolar type Elevated blood pressure reading Family History Other CAD (coronary artery disease) Cancer Diabetes Family history of premature coronary artery disease Hyperlipidemia Hypertension Psychiatric illness Stroke Suicide Denies family history of Clotting disorder Dementia Chronic kidney disease (CKD) Anesthesia complication Bleeding disorder Lung disease Social History Smoking and tobacco/nicotine status: never used tobacco/nicotine Marital status: Female Reproductive History : 6 Data Anesthesia 09/07/24 05:07 Short CBC 09/07/24 Range/Units 05:07 WBC 8.09 (3.29-11.43) 10^3/uL Hgb 11.30 (11.27-16.99) g/dL Hct 34.8 L (36-47) % MCV 85.7 (85-98) fl Plt Count 150 L (157-399) 10^3/cmm Neut % (Auto) 62.7 % Neut # (Auto) 5.07 (1.8-7.7) 10^3/uL Blood Bank 09/05/24 09/07/24 18:00 05:07 Blood Type A Positive A Positive Rho(D) Type Rh positive Rh positive Antibody Screen Negative Cardiac Studies: 2 Echocardiogram Ultrasound 08/04/20 Holter Monitor 09/04/20
[2024-09-08] VITALS (26 sets, daily range): BP systolic 121–177; BP diastolic 61–101; PULSE 60–122; RESP 16–18; TEMP 35.7–36.7; O2SAT 100; BMI 39.6
[2024-09-08] MEDS: ampicillin 1,000 MG in sodium chloride 0.9% (plus) 50 ML 100 MG IV ×5 (00:13→20:11)
[2024-09-08] MEDS: oxytocin 30 UNIT/500 ML BAG IV (00:45)
[2024-09-08] MEDS: hyDROXYzine 25 mg Capsule 50 MG PO (01:00)
--- NOTE | 2024-09-08 12:31 | P.PN_ITS ---
Subjective 2 Subjective: Mookie 29-year-old female with an estimated gestational age at 36 weeks with uncontrolled hypertension, Vitals/I&O/Wt Last Vital Signs Temp 96.3 F L 09/08/24 06:20 Pulse 83 09/08/24 05:45 Resp 16 09/08/24 08:00 BP 130/63 09/08/24 05:45 O2 Del Method Room Air 09/08/24 04:51 09/07/24 09/08/24 09/08/24 22:59 06:59 14:59 Intake Total 50 / 150 132.5 / 282.5 Balance 50 / 150 132.5 / 282.5 Weight last 48 hrs Weight 104.78 kg Weight 104.78 kg Physical Exam 2 Narrative: GA: Alert and oriented ?3. Lungs: Clear to auscultation bilaterally. Heart: Regular rhythm and rate. Abdomen: Gravid, full the height equals dates, nontender. 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 Extremities: no edema, no cyanosis, no calves pain. heart tracing: Basal rate: 140's bpm, Variability: moderate, Accelerations: present, Decelerations: absent, Contraction: q3min. Data 09/10/24 01:53 A&P Assessment and plan (1) Gestational hypertension: Mrs. Streeter 29-year-old female with an estimated gestational age at 36 weeks, with a history of gestational hypertension, uncontrolled by medication ranging to severe levels. Patient have a slow progression. Plan to have patient a break from pit, shower and eat before restarting oxytocin induction with a new oxytocin bag. Qualifiers: Trimester: third trimester Qualified Code(s): O13.3 - Gestational [-induced] hypertension without significant proteinuria, third trimester Plan monitor Continue with induction Attestations 2 Medical Necessity Statement*: Professional opinion per admitting diagnosis Coding Level of Care Code Acute Code for Chg Fwd Diagnoses Gestational hypertension, third trimester O13.3 Trimester: third trimester
[2024-09-08] MEDS: calcium carbonate 500 mg Chew Tablet 1000 MG PO (13:13)
[2024-09-08] MEDS: dextrose 5%-lactated ringers 1,000 ML 125 ML IV (19:41)
[2024-09-08] MEDS: fentaNYL 50 mcg/mL INJ 2mL IVP (20:27)
[2024-09-08] MEDS: lactated ringers 1,000 ML 999 ML IV ×2 (20:45→22:00)
[2024-09-08] MEDS: ROPivacaine syringe 100 MG/50 ML SYRINGE 10 MG EPIDURAL (22:17)
--- NOTE | 2024-09-08 22:20 | P.ANESUD_ITS ---
Pre-Anesthetic Update Pre-Anesthetic Assessment: Date of Surgery/Procedure: 09/08/24 Preop Elaina gnosis: labor pain Proposed Procedure: epidural Any changes to Pre-Anesthetic Assessment?: No Labs Last 48hrs: Short CBC 09/07/24 Range/Units 05:07 WBC 8.09 (3.29-11.43) 10^ 3/uL Hgb 11.30 (11.27-16.99) g/ dL Hct 34.8 L (36-47) % MCV 85.7 (85-98) fl Plt Count 150 L (157-399) 10^3/c mm Neut % (Auto) 62.7 % Neut # (Auto) 5.07 (1.8-7.7) 10^3/u L Blood Bank 09/07/24 05:07 Blood Type A Positive Rho(D) Type Rh positive Antibody Screen Negative Vitals: Temperature 98.0 F 09/08/24 18:10 Temperature Source Oral 09/08/24 18:10 Pulse Rate 103 H 09/08/24 22:14 Pulse Rhythm Regular 09/05/24 18:02 Pulse Strength 3+ Normal 09/05/24 18:02 Respiratory Rate 18 09/08/24 20:27 Respiratory Effort Spontaneous, Non- Labored 09/08/24 20:27 Respiratory Depth Normal 09/08/24 20:27 Respiratory Patter n Normal 09/08/24 20:27 Blood Pressure 140/72 09/08/24 22:12 Pulse Oximetry 100 09/08/24 22:14 Oxygen Delivery Me thod Room Air 09/08/24 04:51 Exam: Pre-Anes Outpt Exam: alert, oriented x 3, clear to auscultation bilaterally and regular rate & rhythm Cardiac Studies: Echocardiogram Ultrasound 08/04/20 Holter Monitor 09/04/20
--- NOTE | 2024-09-08 22:20 | P.ANES_ITS ---
Anesthesia Procedures Procedure/Date: 09/08/24 epidural Procedure Narrative: epidural complete, bolus given, epidural pump initiated with CARE ASST education given, vitals taken during procedure and satisfactory throughout, patient admits to decrease pain, report of procedure to OB RN Epidural: Time Out Performed: Yes Consents Signed: Procedure Consent Consent: requested by attending/covering physician, from patient, risks and benefits reviewed and patient agrees to proceed Lumbar Level: L3-L4 Ep idural position: sitting Epidural procedure: sterile prep of area, 1% lidocaine to numb the area (3 mL), 18 g needle, negative for paresthesia passed, neg for paresthesia, test dose given, 1.5% xylocaine 1:200k epi (5 mL), 0.2% Ropivacaine bolus ml (5 mL), placed PCEA, no systemic response, sterile dressing applied, L.U.D. no apparent complications and 0.2% Ropiavacaine @ mls/hr (13 mL/hr)
[2024-09-09] VITALS (52 sets, daily range): BP systolic 106–172; BP diastolic 56–92; PULSE 55–120; RESP 15–18; TEMP 36.2–37.1; O2SAT 98
[2024-09-09] MEDS: ampicillin 1,000 MG in sodium chloride 0.9% (plus) 50 ML 100 MG IV ×4 (01:02→13:07)
[2024-09-09] MEDS: ROPivacaine syringe 100 MG/50 ML SYRINGE 10 MG EPIDURAL ×4 (01:45→13:08)
[2024-09-09] MEDS: ondansetron 2 mg/ML SDV 2 mL 4 MG IVP (08:11)
[2024-09-09] MEDS: dextrose 5%-lactated ringers 1,000 ML 125 ML IV (08:47)
--- NOTE | 2024-09-09 13:59 | P.PCNOB_ITS ---
Delivery Note: Date of delivery: September 09, 2024 Pre-delivery diagnoses: at 36 weeks Uncontrolled hypertension Post-delivery diagnoses: at 36 weeks delivered Uncontrolled hypertension Procedure: Spontaneous vaginal delivery Delivering Physician: Teja Sandoval MD Estimated blood loss (mL): 300 Delivery: The patient was noted to be complete and pushing, so was placed in the dorsal lithotomy position, prepped and draped in the usual sterile fashion for a vaginal delivery. Pt. Noted to have epidural anesthesia. At 1350 the patient delivered a viable 36 weeks female weighing 2730 g with scores of 8 and 9 at one and five minutes, respectively. The vertex was delivered spontaneously over intact perineum. The patient was asked to push and the head delivered spontaneously in the JUJU position, over an intact perineum. A nuchal cord was checked and 1 noted, and delivered through around head as necessary. The anterior shoulder delivered easily and the posterior shoulder followed. The remainder of the infant was easily delivered and the oropharynx and nasopharynx was bulb suctioned. The infant was noted to have spontaneous cry and spontaneous movement of all four extremities. The cord was clamped x 2 and cut and noted to have 2 arteries and one vein. The was passed to the mother's abdomen where nursing personnel were in attendance. The placenta delivered intact spontaneously and the uterus was explored. 20 units of Pitocin was placed in the IV bag to firm the uterus. Examination of the cervix and vaginal vault did not reveal any lacerations. Examination of the perineum showed no lacerations. The vaginal pack was then removed. The patient tolerated this procedure well, and recovered in L&D with her in their LDR room. All sponge and needle counts were correct. History History History 2 6 Term 2 1 Miscarriages/Ectopic 2 Living Children 3 Coding Level of Care Code Acute Code for Chg Fwd
[2024-09-09] MEDS: docusate sodium 100 mg Capsule PO (20:26)
[2024-09-09] MEDS: ibuprofen 800 mg tablet PO (20:26)
[2024-09-10 01:23] VITALS: BP 144/80; PULSE 87; RESP 16; TEMP 36.6; TEMP 36.7; O2SAT 97
[2024-09-10 01:59] LABS: Hematocrit 31.7 % (36-47); Mean Corpuscular HGB Conc 32.5 g/dL (30-55); Mean Corpuscular Volume 86.1 fl (85-98); Mean Platelet Volume 9.3 fL (7.4-10.4); Platelet Count 137 10^3/cmm (157-399); Red Blood Count 3.68 10^6/uL (3.85-5.65); Red Cell Distribution Width 20.1 % (12.1-15.1); White Blood Count 7.69 10^3/uL (3.29-11.43)
[2024-09-10 06:33] VITALS: BP 121/79; PULSE 79; RESP 16; TEMP 36.8; O2SAT 98
--- NOTE | 2024-09-10 08:00 | ANE.PACU2 ---
Inpatient post-anesthesia follow up: Airway intact: Yes Vital signs: Temperature 98.2 F Pulse Rate 77 Respiratory Rate 16 Blood Pressure 130/79 Pulse Oximetry 99 Oxygen Delivery Me thod Room Air Oxygen Flow Rate Fraction of Inspir ed Oxygen Hydration adequate: Yes Nausea and vomiting: No Pain level: 1 Mental status: Baseline Epidural Start/End: Epidural Start Date: 09/08/24 Epidural Start Time: 22:05 Epidural End Date: 09/09/24 Epidural End Time: 15:22
[2024-09-10 09:00] VITALS: BP 132/75; PULSE 84; RESP 16; O2SAT 98
[2024-09-10] MEDS: PRENATAL VIT NO.130/IRON/FOLIC 1 EACH TABLET PO (10:44)
[2024-09-10] MEDS: docusate sodium 100 mg Capsule PO ×2 (10:44→20:21)
[2024-09-10] MEDS: ibuprofen 800 mg tablet PO ×2 (10:44→20:21)
[2024-09-10 16:00] VITALS: BP 135/82; PULSE 78; RESP 16; TEMP 36.7; O2SAT 98
[2024-09-10 20:43] VITALS: BP 115/69; PULSE 85; RESP 14; TEMP 36.8; O2SAT 98
[2024-09-11 05:30] VITALS: BP 106/53; PULSE 76; RESP 16; TEMP 36.6; O2SAT 99
--- NOTE | 2024-09-11 09:31 | PM.OBGYDC ---
Discharge Providers EGG PACKER Date of Admission: 09/07/24 06:45 Date of Discharge: 09/11/24 Attending Provider at Admission: Teja Sandoval MD Attending Provider at Discharge: Teja Sandoval MD Primary Care Provider: Helio Gupta MD Diagnoses at Discharge Discharge Diagnosis (1) Gestational hypertension: Status: Acute Qualifiers: Trimester: third trimester Qualified Code(s): O13.3 - Gestational [-induced] hypertension without significant proteinuria, third trimester Reason for Visit Reason for Visit: elevated blood pressure Hospital Course Hospital Course Mrs. Streeter 29-year-old female admitted at 35+5 weeks for uncontrolled hypertension, proceeded to have an induction at 36 weeks. She had been admitted several times due to high blood pressure and referred to [facility] [place] but later discharge home. she progressed to have a spontaneous vaginal delivery without complication. observation uneventful. Blood pressure has been under control. Tolerating diet well. Ambulating without difficulty. She is afebrile hemodynamically stable day 2. She was counseled regarding pelvic rest for 6 weeks (no sex, no tampons, no vaginal douches). Return to the emergency room if any fever, increased bleeding or pain. Information Peripartum Data: Infant Delivery Method: Vaginal Physical Exam Narrative: GA; alert and oriented x 3 HEENT: normal Breasts: engorged Nipples - skin intact Lungs; clear to auscultation Heart: regular rhythm, no murmurs. Abd: Appropriately tender. BS+. Uterine fundus below umbilicus. No Fundal Tenderness. Perineum: normal lochia. Extremities: no edema, no cyanosis, no tenderness. Urinary Catheter Management: Ayala: Cath Placed During This Visit: yes Reason for Continuing Indwelling Catheter: Required Immobilization for Trauma or Surgery or Anesthesia Urinary Catheter Date of Insertion: 09/08/24 Urinary Catheter Time of Insertion: 23:12 History History History 6 Term 2 1 Miscarriages/Ectopic 2 Living Children 3 Discharge Data Studies Completed and Pending Completed Studies During Hospitalization Category Date Time Status US OB BPP wo NST 53193 Stat Ultrasound 09/05/24 19:06 Completed Radiology Impressions Obstetrics US/Biophysical Profile 09/05/24 19:06 IMPRESSION: Biophysical profile score is 8 out of 8. Laboratory Results WBC 7.69 10^3/uL (3.29-11.43) 09/10/24 01:53 RBC 3.68 10^6/uL (3.85-5.65) L 09/10/24 01:53 Hgb 10.30 g/dL (11.27-16.99) L 09/10/24 01:53 Hct 31.7 % (36-47) L 09/10/24 01:53 MCV 86.1 fl (85-98) 09/10/24 01:53 MCH 28.0 pg (27-33) 09/10/24 01:53 MCHC 32.5 g/dL (30-55) 09/10/24 01:53 RDW 20.1 % (12.1-15.1) H 09/10/24 01:53 Plt Count 137 10^3/cmm (157-399) L 09/10/24 01:53 MPV 9.3 fL (7.4-10.4) 09/10/24 01:53 Neut % (Auto) 62.7 % 09/07/24 05:07 Lymph % (Auto) 28.8 % 09/07/24 05:07 [place] % (Auto) 6.3 % 09/07/24 05:07 Eos % (Auto) 1.1 % 09/07/24 05:07 Baso % (Auto) 0.4 % 09/07/24 05:07 Neut # (Auto) 5.07 10^3/uL (1.8-7.7) 09/07/24 05:07 Lymph # (Auto) 2.3 10^3/uL (0.8-4.8) 09/07/24 05:07 [place] # (Auto) 0.5 10^3/uL (0.2-0.9) 09/07/24 05:07 Eos # (Auto) 0.1 10^3/uL (0.0-0.8) 09/07/24 05:07 Baso # (Auto) 0.0 10^3/uL (0.0-0.1) 09/07/24 05:07 Nucleated RBC % (auto) 0 % 09/07/24 05:07 Nucleated RBCs # 0.0 /100WBC 09/07/24 05:07 Blood Type A Positive 09/07/24 05:07 Rho(D) Type Rh positive 09/07/24 05:07 Antibody Screen Negative 09/07/24 05:07 Vitals Last Vital Signs Temp 97.9 F 09/11/24 05:30 Pulse 76 09/11/24 05:30 Resp 16 09/11/24 05:30 BP 106/53 09/11/24 05:30 Pulse Ox 99 09/11/24 05:30 O2 Del Method Room Air 09/11/24 05:30 Results Labs OB ([facility]): Obstetrics US 09/03/24 Obstetrics US/Biophysical Profile 09/05/24 Blood Type A Positive 09/07/24 Antibody Screen Negative 09/07/24 Hct 31.7 % (36-47) L 09/10/24 Hgb 10.30 g/dL (11.27-16.99) L 09/10/24 Rho(D) Type Rh positive 09/07/24 Plt Count 137 10^3/cmm (157-399) L 09/10/24 Hep Bs Antigen Non-reactive (NON-REACTIVE) 04/22/24 Hep Bs Ag Confirmation Not Reportable 04/22/24 Hepatitis C Antibody Non-reactive (Nonreactive) 03/20/24 Rubella IgG Antibody 195.4 IU/mL (0.0-10.0) H 03/20/24 RPR Nonreactive (Nonreactive) 03/20/24 HIV 1&2 Ab & HIV 1 Ag Non-reactive (Non-Reactiv) 03/20/24 TSH 0.85 uIU/mL (0.27-4.20) 03/20/24 C.trachomatis RNA (TMA) Not detected (NOT DETECTED) 03/20/24 N.gonorrhoeae RNA (TMA) Not detected (NOT DETECTED) 03/20/24 T. vaginalis Amp RNA Not detected (NOT DETECTED) 03/20/24 Chlamydia/GC Comment See note 03/20/24 Cystic Fibrosis Screen Negative 03/20/24 Glucose 1 Hr 50 gm 97 mg/dL (85-140) 07/08/24 Uric Acid 4.0 mg/dL (2.4-5.7) 09/05/24 Ser , Semi-Qnt 7683.00 mIU/mL 02/16/24 HCG, Qual Positive (Negative) H 02/16/24 Urine Opiates Screen Negative ng/mL (Negative) 03/20/24 Ur Barbiturates Screen Negative ng/mL (Negative) 03/20/24 Ur Phencyclidine Scrn Negative ng/mL (Negative) 03/20/24 Ur Amphetamines Screen Negative ng/mL (Negative) 03/20/24 U Benzodiazepines Scrn Negative ng/mL (Negative) 03/20/24 Urine Cocaine Screen Negative ng/mL (Negative) 03/20/24 U Marijuana (THC) Screen Negative ng/mL (Negative) 03/20/24 Micro Urine Specimen 03/20/24 Pap Smear Interpret See note 04/03/24 Discharge Plan Discharge Patient Disposition: Home Condition: Stable Prescriptions: New docusate sodium [Colace] 100 mg capsule 100 mg PO BID Qty: 60 0RF ferrous sulfate [Iron (ferrous sulfate)] 325 mg (65 mg iron) tablet 325 mg PO BID Qty: 60 3RF acetaminophen 325 mg capsule 325 mg PO Q4H PRN (Reason: fever or pain) Qty: 60 0RF ibuprofen 800 mg tablet 800 mg PO TID PRN (Reason: pain) Qty: 60 0RF Continued multivitamin Tablet 1 tab PO DAILY nifedipine [Procardia XL] 30 mg tablet extended release 24hr 30 mg PO BID Qty: 60 2RF ferrous sulfate 27 mg iron tablet 27 mg PO DAILY diltiazem HCl [Cardizem CD] 120 mg capsule,extended release 24hr 120 mg PO DAILY Qty: 30 0RF acetaminophen 500 mg Tablet 500 - 1,000 mg PO Q6H PRN (Reason: Pain) aspirin 81 mg Capsule 81 mg PO DAILY labetalol 100 mg tablet 100 mg PO TID Discharge Orders: Discharge Order (Routine); Ordered 09/11/24 Ordered By: Teja Sandoval Referrals: Teja Sandoval MD [Physician] - 2 weeks Discharge Diet: Usual diet Patient Instructions: Depression (DC), Opioid Safety (DC), Preeclampsia and Eclampsia After Delivery (GEN), Hemorrhage (DC), OB Discharge Report, OB Food/Drug Interaction Guide, Opioid Safety, OB Home Care, OB Vaginal Deliveries - [facility], Abnormal Bleeding Activity Restrictions/Additional Instructions: 1. Please call [facility] on next working day to make your appointment in 2 weeks to monitor blood pressure. 2. Please stay home until you come back to the clinic on first post-hospatilization check up. 3. Please follow instructions on your medications CAREFULLY. 4. If you have abdominal incision, do not cover it unless dressing is necessary because of drainage. OK to shower, but avoid bath. Leave steri-strips until they fall off. If they are still on one week after surgery, you may remove them. 5. If you had vaginal surgery or vaginal repair, Dr. Sandoval may instruct you to take SITZ bath. 6. Yellow, blood tinged odorous vaginal discharge is usually normal after hysterectomy or vaginal surgeries. 7. No SEXUAL INTERCOURSE, tampons, or douches until you are completely released from the post-operative care. 8. Avoid constipation by eating right and maybe using some Metamucil or Milk of Magnesia. 9. All prescription refills are given during the working hours. Please do no wait till it runs out. Call the clinic at [phone] before your medication runs out. The clinic will get in touch with your doctor to prescribe medications if necessary. 10. Please remain within 40 mile radius from our hospital because emergencies do happen now and then during the post-operative period. 11. If you have stairs at home, take one step at a time slowly and minimize the number of trips. It helps to stay in one floor for the next few days. No lifting except what you can lift by one hand until you are released from the post-operative care. 12. Driving is discouraged until you are well healed. It may be 3-4 weeks before you feel strong enough to drive. You should be able to turn and look through the rear window without pain and you should be able to push the brake pedal very hard without pain before you drive. No fast rules, but SAFETY should be your primary concern. DO NOT drive if you are on sedating medications such as narcotics. 13. Call the clinic (during working hours) to make urgent appointment or go to the Emergency room, if any of the following occurs: i. Vaginal bleeding becomes heavy, more than a period. ii. Incision becomes red and sore, or drains pus. iii. Your TEMPERATURE is over 100.4F or you have chill. iv. IV site becomes red and swollen (a little ``knot?? is usually OK) v. Persistent nausea and vomiting vi. Persistent constipation or diarrhea vii. Rash or allergic reaction to medications. Discharge Attestations EGG PACKER Time Spent in Discharge Care*: greater than 30 min Coding Level of Care Code Acute Code for Chg Fwd Diagnoses Gestational hypertension, third trimester O13.3 Trimester: third trimester
[2024-09-11] MEDS: PRENATAL VIT NO.130/IRON/FOLIC 1 EACH TABLET PO (10:06)
[2024-09-11] MEDS: docusate sodium 100 mg Capsule PO (10:06)
[2024-09-11] MEDS: ibuprofen 800 mg tablet PO (10:06)
[2024-09-11 12:00] VITALS: BP 130/79; PULSE 77; RESP 16; TEMP 36.8
== END 2024-09-11 12:35 | disposition home or self-care (01) | DRG 807 ==
LOC: OPOB 19:02 → OBGYN 19:02
PROVIDERS: Admitting Provider Obstetrics & Gynecology; PCP Obstetrics & Gynecology; Visit Provider Obstetrics & Gynecology
DX: O13.4 Gestational [pregnancy-induced] hypertension without significant proteinuria, complicating childbirth (principal); Z37.0 Single live birth; O60.14X0 Preterm labor third trimester with preterm delivery third trimester, not applicable or unspecified; O69.81X0 Labor and delivery complicated by cord around neck, without compression, not applicable or unspecified; Z3A.36 36 weeks gestation of pregnancy
CPT/HCPCS: 36415; 51702; 59025; 59409; 76819; 85025; 85027; 86850; 86900; 93005; 96374; 96376; 98960; 99211; G0378; J0290; J2405; J2590; J2795; J3010; J3490; J7120; J7121

== ENCOUNTER 2025-02-07 07:14 | Emergency (ER) | payer MEDICAID, SELFPAY ==
--- NOTE | 2025-02-07 07:16 | XR_ITS ---
WS: [id number] Portable AP upright chest, 02/07/2025 Clinical Data: dyspnea/cough Comparison: Portable chest, 02/08/2010 Findings: No nodules, masses or effusions are seen. The heart is normal. The pulmonary vascularity is not increased. No pneumonia or pneumothorax is seen. Monitor leads are on the chest wall. XR/XR chest 1V portable [id number] Impression: Negative chest.
--- NOTE | 2025-02-07 07:18 | ECG_ITS ---
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 Measurements Intervals [place] Rate: 113 P: 61 AK: 143 QRS: 66 QRSD: 89 T: -25 QT: 321 QTc: 442 Interpretive Statements SINUS TACHYCARDIA WITH FREQUENT VENTRICULAR PREMATURE COMPLEXES POSSIBLE LEFT ATRIAL ENLARGEMENT [-0.1mV P-WAVE IN V1/V2] NONSPECIFIC ST & T-WAVE ABNORMALITY Compared to ECG 09/06/2024 17:40:54 Ventricular premature complex(es) now present Sinus rhythm no longer present Sinus arrhythmia no longer present Possible ischemia no longer present T-wave abnormality still present Electronically Signed On 02-07-2025 08:36:42 CDT by Nano Gonzáles M.D. [id number]
[2025-02-07 07:27] VITALS: BP 137/96; PULSE 89; RESP 18; TEMP 36.6; O2SAT 100; BMI 37.8
--- NOTE | 2025-02-07 07:31 | ED_ITS ---
HPI - Chest Pain 2 General: Chief Complaint: Chest Pain Stated Complaint: chest and arm pain Time Seen by Provider: 02/07/25 07:15 History of Present Illness: 29-year-old female presents emergency ro om complaining of chest pain that started last night. It is very positional is worse when she lays down she also notices worse when she takes a deep breath makes her feel short of breath because of when she takes a breath it hurts more. Starts between her shoulder blades radiates up to the left shoulder and around under the left breast. She denies any fever sweats chills cough no trauma. No productive cough. No vomiting or diarrhea. No chronic medical problems no history of any arrhythmias. She has had reflux issues in the past. Associated symptoms: Deny abdominal pain, dyspnea or fever(s) Related Data Home Medications ?Medication ?Instructions ?Recorded ?Confirmed aspirin 81 mg tablet,delayed 160 mg PO DAILY PRN Pain 02/07/25 02/07/25 release (Jorge Luis Low Dose Aspirin) calcium carbonate 1,000 mg PO BID PRN Acid Ref lux 02/07/25 02/07/25 Previous Rx's ?Medication ?Instructions ?Recorded diclofenac sodium 75 mg 75 mg PO Q12H PRN pain #20 t abs 02/07/25 tablet,delayed release tizanidine 4 mg tablet 4 mg PO Q6H PRN muscle spast icity 02/07/25 #20 tabs Allergies Allergy/AdvReac Type Severity Reaction Status Date / Time No Known Allergies Allergy Verified 09/05/24 15:09 Review of Systems 2 Const: Denies: fever(s) or chills Card: Reports: chest pain Resp: Denies: dyspnea GI: Denies: abdominal pain : Denies: dysuria, urinary frequency or urinary urgency Musc: Denies: neck pain or back pain Skin/Breast: Denies: rash PFSH ED 2 PFSH: Medical History Schizoaffective disorder, bipolar type Elevated blood pressure reading Family History Other CAD (coronary artery disease) Cancer Diabetes Family history of premature coronary artery disease Hyperlipidemia Hypertension Psychiatric illness Stroke Suicide Denies family history of Clotting disorder Dementia Chronic kidney disease (CKD) Anesthesia complication Bleeding disorder Lung disease Social History Smoking and tobacco/nicotine status: never used tobacco/nicotine Marital status: Physical Exam 2 Const: COMMON NORMALS: no acute distress GENERAL APPEARANCE: cooperative and comfortable ORIENTATION/CONSCIOUSNESS: Yes awake, Yes oriented to person, Yes oriented to place and Yes oriented to time HENMT: COMMON NORMALS: normocephalic, atraumatic and hearing grossly normal bilaterally HEAD & SCALP: normocephalic and atraumatic Resp: COMMON NORMALS: normal respiratory effort, No retractions, No use of accessory muscles and clear to auscultation bilaterally AUSCULTATION: clear to auscultation bilaterally Cardio: COMMON NORMALS: regular rate, regular rhythm and No murmurs present (Cardio) RATE: regular rate RHYTHM: regular rhythm GI: COMMON NORMALS: Soft to palpation and No hepatosplenomegaly present A USCULTATION: Yes normoactive bowel sounds PALPATION: Yes Soft to palpation, No Tenderness to palpation present (GI), No Guarding due to palpation present (GI) and Yes No hepatosplenomegaly present Extremity: COMMON NORMALS: normal to inspection, capillary refill normal, no clubbing, cyanosis or edema, no calf tenderness and no pedal edema Neuro: SENSORIUM/ORIENTATION: Yes oriented to person, Yes oriented to place and Yes oriented to time Skin: COMMON NORMALS: no rashes or lesions noted GENERAL SKIN EXAM: no rashes or lesions noted Course 2 Vital Signs: Vital signs: Vital Signs Temperature 97.8 F 02/07/25 07:27 Pulse Rate 85 02/07/25 09:13 Respiratory Rate 18 02/07/25 08:45 Blood Pressure 127/83 02/07/25 09:13 Pulse Oximetry 98 02/07/25 09:13 Oxygen Delivery Me thod Room Air 02/07/25 07:43 MDM - Chest Pain Medical Decision Making EKG does not show any acute changes. No arrhythmias. Chest x-ray unremarkable. Nature of the pain as patient described it is more musculoskeletal in nature will discharge home with diclofenac and tizanidine. Medical Records I reviewed the patient's medical records. Lab Data I reviewed the patient's lab results. 02/07/25 07:21 02/07/25 07:21 Radiology Impressions Chest X-Ray 02/07/25 07:16 Impression: Negative chest. Laboratory Results WBC 8.98 10^3/uL (3.29-11.43) 02/07/25 07:21 RBC 4.45 10^6/uL (3.85-5.65) 02/07/25 07:21 Hgb 13.30 g/dL (11.27-16.99) 02/07/25 07:21 Hct 39.3 % (36-47) 02/07/25 07:21 MCV 88.3 fl (85-98) 02/07/25 07:21 MCH 29.9 pg (27-33) 02/07/25 07:21 MCHC 33.8 g/dL (30-55) 02/07/25 07:21 RDW 12.5 % (12.1-15.1) 02/07/25 07:21 Plt Count 249 10^3/cmm (157-399) 02/07/25 07:21 MPV 8.7 fL (7.4-10.4) 02/07/25 07:21 Neut % (Auto) 59.2 % 02/07/25 07:21 Lymph % (Auto) 31.0 % 02/07/25 07:21 [place] % (Auto) 8.2 % 02/07/25 07:21 Eos % (Auto) 0.9 % 02/07/25 07:21 Baso % (Auto) 0.4 % 02/07/25 07:21 Neut # (Auto) 5.31 10^3/uL (1.8-7.7) 02/07/25 07:21 Lymph # (Auto) 2.8 10^3/uL (0.8-4.8) 02/07/25 07:21 [place] # (Auto) 0.7 10^3/uL (0.2-0.9) 02/07/25 07:21 Eos # (Auto) 0.1 10^3/uL (0.0-0.8) 02/07/25 07:21 Baso # (Auto) 0.0 10^3/uL (0.0-0.1) 02/07/25 07:21 Nucleated RBC % (auto) 0 % 02/07/25 07:21 Nucleated RBCs # 0.0 /100WBC 02/07/25 07:21 D-Dimer 0.28 ug/mLFEU (0-0.59) 02/07/25 07:29 Sodium 139 mmol/L (136-145) 02/07/25 07:21 Potassium 4.0 mmol/L (3.5-5.1) 02/07/25 07:21 Chloride 102 mmol/L (98-107) 02/07/25 07:21 Carbon Dioxide 23 mmol/L (22-29) 02/07/25 07:21 Anion Gap 18.0 (5-19) 02/07/25 07:21 BUN 18 mg/dL (6-20) 02/07/25 07:21 Creatinine 0.6 mg/dL (0.5-0.9) 02/07/25 07:21 GFR Calculation 119.0 mL/min (90-130) 02/07/25 07:21 Glucose 89 mg/dL (65-115) 02/07/25 07:21 Calculated Osmolality 289 mOsm/kg (285-295) 02/07/25 07:21 Calcium 10.0 mg/dL (8.5-10.5) 02/07/25 07:21 Total Bilirubin 0.3 mg/dL (0.15-1.2) 02/07/25 07:21 AST 15 U/L (0-32) 02/07/25 07:21 ALT 12 U/L (0-33) 02/07/25 07:21 Alkaline Phosphatase 129 U/L (35-105) H 02/07/25 07:21 Total Protein 7.9 g/dL (6.6-8.7) 02/07/25 07:21 Albumin 4.7 g/dL (3.5-5.2) 02/07/25 07:21 Globulin 3.2 g/dL (1.3-4.6) 02/07/25 07:21 All radiology interpretation(s) finalized by discharge EKG Data EKG 1: Interpretation: EKG shows sinus tachycardia with PVCs. FL interval 143 QT 321. No acute ST changes. Discharge Plan Discharge Patient Disposition: Home Clinical Impression: Atypical chest pain, Back pain Condition: Stable Prescriptions: New tizanidine 4 mg tablet 4 mg PO Q6H PRN (Reason: muscle spasticity) Qty: 20 0RF Rx Instructions: do not exceed 3 doses per 24 hrs diclofenac sodium 75 mg tablet,delayed release (DR/EC) 75 mg PO Q12H PRN (Reason: pain) Qty: 20 0RF No Action aspirin [Jorge Luis Low Dose Aspirin] 81 mg Tablet,Delayed Release (Dr/Ec) 160 mg PO DAILY PRN (Reason: Pain) calcium carbonate [Tums 500] 500 mg calcium (1,250 mg) Tablet,Chewable 1,000 mg PO BID PRN (Reason: Acid Reflux) Discharge Orders: Discharge ED (Routine); Ordered 02/07/25 Ordered By: Jeremi Alfonso Discharge Diet: Usual diet Discharge Activity: Resume usual activity Patient Instructions: Opioid Safety, Pain Management Activity Restrictions/Additional Instructions: Thank you for choosing [facility] for your healthcare needs today. It is very important that you follow up as instructed or that you return to the Emergency Department should you have concerns or if your condition changes or worsens in any way. You were seen in the emergency room with complaints of back pain and chest pain. Chest x-ray was normal EKG did not show any acute abnormalities D-dimer was also normal. Based on your description of symptoms the discomfort is musculoskeletal. Will discharge home with medications to use as needed for discomfort. Print Language: Luxembourgish Coding Level of Care Code ED Floor Attendant for Geremias Maguire
[2025-02-07 07:32] LABS: Basophils % 0.4 %; Eosinophils # 0.1 10^3/uL (0.0-0.8); Eosinophils % 0.9 %; Hematocrit 39.3 % (36-47); Lymphocytes # 2.8 10^3/uL (0.8-4.8); Mean Corpuscular HGB Conc 33.8 g/dL (30-55); Mean Corpuscular Hemoglobin 29.9 pg (27-33); Mean Corpuscular Volume 88.3 fl (85-98); Mean Platelet Volume 8.7 fL (7.4-10.4); Monocytes # 0.7 10^3/uL (0.2-0.9); Monocytes % 8.2 %; Neutrophils # 5.31 10^3/uL (1.8-7.7); Neutrophils % 59.2 %; Nucleated Red Blood Cells % 0 %; Platelet Count 249 10^3/cmm (157-399); Red Blood Count 4.45 10^6/uL (3.85-5.65); Red Cell Distribution Width 12.5 % (12.1-15.1); White Blood Count 8.98 10^3/uL (3.29-11.43)
[2025-02-07 07:43] VITALS: PULSE 83; RESP 29; O2SAT 99
[2025-02-07 07:55] LABS: Alanine Aminotransferase 12 U/L (0-33); Albumin Level 4.7 g/dL (3.5-5.2); Alkaline Phosphatase 129 U/L (35-105); Aspartate Amino Transferase 15 U/L (0-32); Blood Urea Nitrogen 18 mg/dL (6-20); Carbon Dioxide 23 mmol/L (22-29); Chloride 102 mmol/L (98-107); Creatinine Clr Calc Pharmacy 160.2886; Globulin 3.2 g/dL (1.3-4.6); Glucose 89 mg/dL (65-115); Osmolality Calculated 289 mOsm/kg (285-295); Sodium 139 mmol/L (136-145); Total Bilirubin 0.3 mg/dL (0.15-1.2); Total Protein 7.9 g/dL (6.6-8.7)
[2025-02-07 08:30] LABS: D Dimer 0.28 ug/mLFEU (0-0.59)
[2025-02-07 08:45] VITALS: BP 154/76; PULSE 113; RESP 18; O2SAT 95
[2025-02-07 09:13] VITALS: BP 127/83; PULSE 85; O2SAT 98
== END 2025-02-07 09:27 | disposition home or self-care (01) ==
PROVIDERS: Emergency Provider Family Medicine
DX: R07.89 Other chest pain (principal); M54.9 Dorsalgia, unspecified; Z79.82 Long term (current) use of aspirin
CPT/HCPCS: 36415; 71045; 80053; 85025; 85378; 93005; 99285

== ENCOUNTER 2025-08-20 14:55 | Outpatient (CLI) | payer MEDICAID, SELFPAY ==
--- NOTE | 2025-08-20 15:02 | US_ITS ---
WS: [id number] US transvaginal [id number] HISTORY: IRREGULAR CYCLE COMPARISON: 09/26/2023 Uterus: 8.5 cm x 5.5 cm x 4.6 cm. Normal size anteverted uterus. No fibroid or mass. Endometrium: 1.1 cm. Normal. No mass identified. Endocervical region appears normal. Right ovary: 1.9 cm x 3.2 cm x 2.9 cm. Normal size and vascularity, no cystic or solid masses. Left ovary: 2.4 cm x 2.1 cm x 1.6 cm. Normal size and vascularity, no cystic or solid masses. No free fluid in the cul-de-sac. US/US transvaginal [id number] IMPRESSION: 1. Normal endometrium. 2. Normal uterus and ovaries.
== END 2025-08-20 14:56 | disposition home or self-care (01) ==
LOC: RAD 14:56
PROVIDERS: Visit Provider Family Medicine
DX: N92.6 Irregular menstruation, unspecified (principal)
CPT/HCPCS: 76830